=== PATIENT | male | born 1985 | race Caucasian/White ===

== ENCOUNTER 2023-11-06 09:32 | Outpatient (REF) | payer OTHER, SELFPAY | END 2023-11-06 09:33 | disposition home or self-care (01) | LOC: HO.HHCL 09:32 | PROVIDERS: Visit Provider Emergency Medicine | DX: R10.30 Lower abdominal pain, unspecified (principal) | CPT/HCPCS: 36415; 80053; 81003; 82150; 82248; 83690; 85025; 86140; 86704; 86706; 86709; 86803; 87340 ==

== ENCOUNTER 2023-11-07 13:37 | Outpatient (REF) | payer OTHER, SELFPAY | END 2023-11-07 13:38 | disposition home or self-care (01) | LOC: HO.HHCLNP 13:37 | PROVIDERS: Visit Provider Emergency Medicine | DX: R10.30 Lower abdominal pain, unspecified (principal) | CPT/HCPCS: 82274; 87338 ==

== ENCOUNTER 2025-01-22 12:27 | Outpatient (REF) | payer OTHER, SELFPAY ==
[2025-01-22 13:54] LABS: Estimated Average Glucose 120 mg/dL; Hemoglobin A1c % 5.8 % (<6.0)
[2025-01-22 14:01] LABS: Prostate Specific Antigen 0.32 ng/mL (<0.05-4.0)
[2025-01-22 16:47] LABS: Appearance Urine Clear; Color Urine Yellow; Glucose Urine UA Negative (Negative); Leukocyte Esterase Urine Negative (Negative); Nitrite Urine Negative (Negative); PH 6.5 (5.0-9.0); Specific Gravity - Urine 1.025 (1.005-1.025); Urine Blood Negative (Negative); Urine Ketones Negative (Negative); Urine Protein Negative (Neg-Trace)
[2025-01-22 16:54] LABS: Bacteria Urine None Seen (None Seen); Hyaline Casts Urine 0-2 /LPF (0-2); RBC Urine 0-2 /HPF (0-2); Squamous Epithelial Cell Urine 0-2 /HPF (0-2); WBC Urine 0-5 /HPF (0-5)
[2025-01-23 16:45] LABS: CT PCR NOT DETECTED (Not Detect.); NG PCR NOT DETECTED (Not Detect.)
[2025-01-25 04:29] LABS: HBS Num1 1.09 mIU/mL (0-7.99); HBc Num1 0.06 S/CO (0.00-0.79); HBsAGNum1 0.27 S/CO (0.00-0.99); HIV AB/AG Nonreactive (Nonreactive); HIV Num 1 0.06 S/CO (0.00-0.99); Hepatitis A Antibody IgM 0.15 Index (0-0.79); Hepatitis B Core Antibody Nonreactive (Nonreactive); Hepatitis B Surface Antigen Negative (Negative); ~HepC Num1 0.16 S/CO (0.00-0.79); ~Hepatitis A Antibody IgM Nonreactive (Nonreactive); ~Hepatitis B Surface Antibody NONREACTIVE (Nonreactive); ~Hepatitis C Antibody Nonreactive (Nonreactive)
== END 2025-01-22 12:28 | disposition home or self-care (01) ==
LOC: HO.HHCL 12:27
PROVIDERS: Visit Provider Nurse Practitioner Primary Care
DX: Z00.00 Encounter for general adult medical examination without abnormal findings (principal); R35.0 Frequency of micturition; R35.1 Nocturia
CPT/HCPCS: 36415; 81001; 83036; 84153; 86704; 86706; 86709; 86803; 87340; 87389; 87491; 87591

== ENCOUNTER 2025-02-12 13:33 | Outpatient (REF) | payer OTHER, SELFPAY ==
--- NOTE | ~2025-02-12 | US_ITS ---
EXAMINATION: US BLADDER HISTORY: pelvic pain, frequency COMPARISON: There are no prior studies for comparison. FINDINGS: Sonographic examination of the urinary bladder was performed before and after voiding. Before voiding, the urinary bladder measured 11.4 x 7.7 x 8.8, for an estimated volume of404 mL. After voiding, the urinary bladder measured 4.4 x 2.6 x 4.6, for an estimated volume of 28 mL. The urinary bladder wall is mildly thickened measuring up to 6 mm in thickness. No mass is identified. Bilateral ureteral jets are identified. The prostate measures 2.8 x 2.6 x 3.7 cm. US/US bladder IMPRESSION: Urinary bladder wall thickening which can be seen in the setting of cystitis. Post void bladder residual 28 mL. Electronically signed by: Stephan Noriega MD 02/15/2025 07:08 AM EDT
--- OUTSIDE RECORDS SUMMARY | 2025-02-12 13:55 | XMS_ITS | Clinical Summary ---
Author Organization [facility] Address [address] [place] [address] Phone Care Team Providers Care Advanced Practice Rn Name Role Phone Physician, Pcp Unknown Primary Care Provider Yasmin vailable Allergies No known active allergies Medications famotidine (PEPCID) 20 mg tablet Take 1 tablet (20 mg total) by mouth at bedtime for 25 days. 25 tablet 5 02/13/20 25 Active sucralfate (CARAFATE) 100 mg/mL suspension Take 10 mL (1 g total) by mouth 4 (four) times a day (before meals and nightly) for 7 days. 280 mL 5 01/26/20 25 ondansetron (ZOFRAN) 4 mg tablet Take 1 tablet (4 mg total) by mouth every 8 (eight) hours if needed for nausea or vomiting for up to 3 days. 9 tablet 5 01/22/20 25 loperamide (IMODIUM) 2 mg capsule Take 1 capsule (2 mg total) by mouth 4 (four) times a day if needed for diarrhea for up to 3 days. 12 capsule 5 01/22/20 25 Encounters Date Type Department Care Team Description 01/18/2025 7:41 AM EDT - 01/18/2025 10:23 AM EDT [facility] Emergency [address] [place] [address] Dmitri Henriquez MD Lower abdominal pain (Primary Dx); Diarrhea, unspecified type Discharge Disposition: Home or Self Care from Last 3 Months Social History Tobacco Use Types Packs/Day Years Used Date Smoking Tobacco: Never Assessed Sex and Gender Information Value Date Recorded Sex Assigned at Male 01/18/2025 8:08 AM EDT Legal Sex Male 5:44 AM EST Gender Identity Male 01/18/2025 8:08 AM EDT Sexual Orientation Straight 01/18/2025 8: 08 AM EDT Last Filed Vital Signs Vital Sign Reading Time Taken Comments Blood Pressure 142/107 01/18/2025 10:23 AM EDT Pulse 65 01/18/2025 10:23 AM EDT Temperature 37.5 ??C (99.5 ??F) 01/18/2025 10:23 AM E DT Respiratory Rate 20 01/18/2025 10:23 AM EDT Oxygen Saturation 96% 01/18/2025 10:23 AM EDT Inhaled Oxygen Concentration - - Weight 102 kg (225 lb) 01/18/2025 7:30 AM EDT Height 175.3 cm (5' 9 ) 01/18/2025 7:30 AM EDT Body Mass Index 33.23 01/18/2025 7:30 AM EDT Plan of Treatment Health Maintenance Due Date Last Done Comments DTaP,Tdap,and Td Vaccines (1 - Tdap) 2002 Hepatitis B Vaccines (1 of 3 - 19+ 3-dose series) 2002 COVID-19 Vaccine (2023-2 5 season) 2024 03/24/2021, 03/03/2021 Cholesterol Screening (Lipid Panel) 01/18/2025 Depression Screening 01/18/2025 HIV Screening 01/18/2025 Hepatitis C Screening 01/18/2025 Social Influencers of Health Screening 01/18/2025 Influenza Vaccine (Season Ended) 2025 HIB Vaccines Aged Out No longer eligi ble based on patient's age to complete this topic HPV Vaccines Aged Out No longer eligi ble based on patient's age to complete this topic Hepatitis A Vaccines Aged Out No long er eligible based on patient's age to complete this topic IPV Vaccines Aged Out No longer eligi ble based on patient's age to complete this topic MMR Vaccines Aged Out No longer eligi ble based on patient's age to complete this topic Meningococcal ACWY Vaccine Aged Out N o longer eligible based on patient's age to complete this topic Meningococcal B Vaccine Aged Out No l onger eligible based on patient's age to complete this topic Pneumococcal Vaccine: Pediatrics (0 to 5 Years) and At-Risk Patients (6 to 64 Years) Aged Out No longer eligible b ased on patient's age to complete this topic RSV Immunization Patients Under 20 months Aged Out No longer eligible b ased on patient's age to complete this topic Varicella Vaccines Aged Out No longer eligible based on patient's age to complete this topic Procedures Procedure Name Priority Date/Time Associated Diagnosis Comments CT ABDOMEN PELVIS W CONTRAST STAT 01/18/2025 9:02 AM EDT FARMER URINE CULTURE TUBE STAT 01/18/2025 8:02 AM EDT URINALYSIS WITH REFLEX MICROSCOPIC AND CULTURE STAT 01/18/2025 8:02 AM EDT URINALYSIS WITH REFLEX MICROSCOPIC AND CULTURE STAT 01/18/2025 8:02 AM EDT CBC WITH AUTO DIFFERENTIAL STAT 01/18/2025 7:40 AM EDT LIPASE STAT 01/18/2025 7:40 AM EDT COMPREHENSIVE METABOLIC PANEL STAT 01/18/2025 7:40 AM EDT CBC AND DIFFERENTIAL STAT 01/18/2025 7:40 AM EDT from Last 3 Months Results * CT Abdomen Pelvis w Contrast (01/18/2025 9:02 AM EDT) Anatomical Region Laterality Modality Body Computed Tomogra phy 01/18/2025 9:13 AM EDT Impressions 01/18/2025 9:16 AM EDT Impression: No acute abdominal process identified. Telerad RAMONITA ([id number]) -------- FINAL REPORT -------- Dictated By: Valery Vasques Dictated Date: 01/18/2025 09:13 ET Assigned Physician: Valery Vasques Reviewed and Electronically Signed By: Valery Vasques Signed Date: 01/18/2025 09:16 ET Workstation ID: [id number] Transcribed By: Self Edit Transcribed Date: 01/18/2025 09:13 ET Narrative 01/18/2025 9:16 AM EDT History: Abdominal pain. Comparison: 01/26/21 Technique: Helical volumetric imaging of the abdomen and pelvis was performed during the uneventful intravenous administration of 90 cc Isovue-370. DLP: 1277.86 mGy/cm GE Desktop Geneticspeed VCT Iterative reconstruction technique Findings: The liver is normal in size and configuration. Geographic areas of diminished attenuation are present in the right hepatic lobe, suggesting fatty infiltration. No masses are identified. The portal vein is patent. The gallbladder is physiologically distended. No evidence of biliary obstruction is seen. The spleen, pancreas and adrenal glands are unremarkable. The kidneys are normal in position and size, with symmetric, intact nephrograms and no evidence of hydronephrosis or mass. No ascites is seen. There is no developing lymphadenopathy. The abdominal aorta and IVC are unremarkable. The prostate, seminal vesicles and urinary bladder appear normal. No evidence of bowel obstruction is seen. The appendix is normal in caliber in the right lower quadrant. No abnormal perienteric or pericolonic fat stranding is identified. The regional skeleton is intact. Procedure Note Valery Vasques MD - 01/18/2025 History: Abdominal pain. Comparison: 01/26/21 Technique: Helical volumetric imaging of the abdomen and pelvis wasperformed during the uneventful intravenous administration of 90 ccIsovue-370. DLP: 1277.86 mGy/cm GE Desktop Geneticspeed VCT Iterative reconstruction technique Findings: The liver is normal in size and configuration. Geographic areas ofdiminished attenuation are present in the right hepatic lobe, suggestingfatty infiltration. No masses are identified. The portal vein is patent.The gallbladder is physiologically distended. No evidence of biliaryobstruction is seen. The spleen, pancreas and adrenal glands are unremarkable. The kidneys are normal in position and size, with symmetric, intactnephrograms and no evidence of hydronephrosis or mass. No ascites is seen. There is no developing lymphadenopathy. The abdominalaorta and IVC are unremarkable. The prostate, seminal vesicles and urinary bladder appear normal. No evidence of bowel obstruction is seen. The appendix is normal incaliber in the right lower quadrant. No abnormal perienteric orpericolonic fat stranding is identified. The regional skeleton is intact. IMPRESSION: Impression: No acute abdominal process identified. Telerad RAMONITA ([id number]) -------- FINAL REPORT -------- Dictated By: Valery aVsques Dictated Date: 01/18/2025 09:13 ET Assigned Physician: Valery Vasques Reviewed and Electronically Signed By: Valery Vasques Signed Date: 01/18/2025 09:16 ET Workstation ID: [id number] Transcribed By: Self Edit Transcribed Date: 01/18/2025 09:13 ET us Dmitri Henriquez MD IMG CT PROCEDURES Final R esult * (ABNORMAL) Urinalysis with reflex microscopic and culture (01/18/2025 8:02 AM EDT) Specific [place] Urine 1.025 1.003 - 1.030 LAB URINALYSIS - AUTOMATED METHOD 01/18/2025 8:26 AM [facility] pH, Urine 6.0 5.0 - 8.0 pH LAB URINALYSIS - AUTOMATED METHOD 01/18/2025 8:26 AM [facility] Leukocytes, Urine Negative Negative LAB URINALYSIS - AUTOMATED METHOD 01/18/2025 8:26 AM [facility] Nitrite, Urine Negative Negative LAB URINALYSIS - AUTOMATED METHOD 01/18/2025 8:26 AM [facility] Protein, Urine Negative <=Trace mg/dL LAB URINALYSIS - AUTOMATED METHOD 01/18/2025 8:26 AM [facility] Glucose, Urine Negative Negative mg/dL LAB URINALYSIS - AUTOMATED METHOD 01/18/2025 8:26 AM [facility] Ketones, Urine Trace(A) Negative mg/dL LAB URINALYSIS - AUTOMATED METHOD 01/18/2025 8:26 AM [facility] Urobilinogen, Urine 1.0 0.2 - 1.0 mg/dL LAB URINALYSIS - AUTOMATED METHOD 01/18/2025 8:26 AM EDT [facility] Bilirubin, Urine Negative Negative LAB URINALYSIS - AUTOMATED METHOD 01/18/2025 8:26 AM EDT [facility] Blood, Urine Negative Negative LAB URINALYSIS - AUTOMATED METHOD 01/18/2025 8:26 AM EDT [facility] Urine Urine specimen obtained by clean catch procedure / Unknown Non-blood Collection / Unknown 01/18/2025 8:02 AM EDT 01/18/2025 8:18 AM EDT Dmitri Henriquez MD LAB URINE ORDERABLES Zuly l Result Performing Organization Address City/[facility]/ZIP Co de Phone Number [facility] [address] [place] [address], [place] [phone] * Farmer urine culture tube (01/18/2025 8:02 AM EDT) Extra Tube Hold for add-ons. 01/18/2025 10:02 AM EDT [facility] Comment:Auto resulted. Urine Urine specimen obtained by clean catch procedure / Unknown Non-blood Collection / Unknown 01/18/2025 8:02 AM EDT 01/18/2025 8:17 AM EDT Dmitri Henriquez MD LAB URINE ORDERABLES Zuly l Result [facility] [address] [place] [address], [place] [phone] * CBC auto differential (01/18/2025 7:40 AM EDT) WBC 8.1 4.8 - 10.8 K/[facility] LAB HEMETOLOGY METHOD 01/18/2025 7:59 AM EDT [facility] RBC 5.10 4.50 - 5.50 M/mcL LAB HEMETOLOGY METHOD 01/18/2025 7:59 AM EDT [facility] Hemoglobin 16.1 13.5 - 17.5 g/dL LAB HEMETOLOGY METHOD 01/18/2025 7:59 AM [facility] Hematocrit 47.5 42.0 - 54.0 % LAB HEMETOLOGY METHOD 01/18/2025 7:59 AM [facility] MCV 93.3 79.0 - 98.0 FL LAB HEMETOLOGY METHOD 01/18/2025 7:59 AM [facility] MCH 31.6 27.0 - 32.0 pcg LAB HEMETOLOGY METHOD 01/18/2025 7:59 AM [facility] MCHC 33.9 32.0 - 37.0 g/dL LAB HEMETOLOGY METHOD 01/18/2025 7:59 AM [facility] RDW 11.9 11.0 - 15.0 % LAB HEMETOLOGY METHOD 01/18/2025 7:59 AM [facility] Platelets 363 130 - 400 K/mcL LAB HEMETOLOGY METHOD 01/18/2025 7:59 AM [facility] MPV 9.6 7.0 - 11.0 FL LAB HEMETOLOGY METHOD 01/18/2025 7:59 AM [facility] NRBC 0.0 <1.0 % LAB HEMETOLOGY METHOD 01/18/2025 7:59 AM [facility] NRBC Absolute 0.00 <0.10 K/mcL LAB HEMETOLOGY METHOD 01/18/2025 7:59 AM [facility] Neutrophils Relative 41.6 % LAB HEMETOLOGY METHOD 01/18/2025 7:59 AM [facility] Lymphocytes Relative 46.5 % LAB HEMETOLOGY METHOD 01/18/2025 7:59 AM [facility] Monocytes Relative 8.2 % LAB HEMETOLOGY METHOD 01/18/2025 7:59 AM [facility] Eosinophils Relative 2.9 % LAB HEMETOLOGY METHOD 01/18/2025 7:59 AM [facility] Basophils Relative 0.6 % LAB HEMETOLOGY METHOD 01/18/2025 7:59 AM [facility] Immature Granulocytes Relative 0.2 % LAB HEMETOLOGY METHOD 01/18/2025 7:59 AM [facility] Neutrophils Absolute 3.35 1.50 - 7.00 K/mcL LAB HEMETOLOGY METHOD 01/18/2025 7:59 AM [facility] Lymphocytes Absolute 3.74 1.00 - 5.00 K/mcL LAB HEMETOLOGY METHOD 01/18/2025 7:59 AM [facility] Monocytes Absolute 0.66 0.20 - 1.00 K/mcL LAB HEMETOLOGY METHOD 01/18/2025 7:59 AM [facility] Eosinophils Absolute 0.23 0.00 - 0.50 K/mcL LAB HEMETOLOGY METHOD 01/18/2025 7:59 AM [facility] Basophils Absolute 0.05 0.00 - 0.20 K/mcL LAB HEMETOLOGY METHOD 01/18/2025 7:59 AM [facility] Immature Granulocytes Absolute 0.02 0.00 - 0.03 K/mcL LAB HEMETOLOGY METHOD 01/18/2025 7:59 AM [facility] Blood Venous blood specimen / Unknown Venipuncture / Unknown 01/18/2025 7:40 AM EDT 01/18/2025 7:50 AM EDT us Dmitri Henriquez MD LAB BLOOD ORDERABLES Zuly l Result Performing Organization Address City/[facility]/ZIP Co de Phone Number [facility] [address] [place] [address], * Lipase (01/18/2025 7:40 AM EDT) Lipase 49 13 - 75 unit/L LAB CHEMISTRY METHOD 01/18/2025 8:49 AM EDT [facility] Blood Venous blood specimen / Unknown Venipuncture / Unknown 01/18/2025 7:40 AM EDT 01/18/2025 7:50 AM EDT Dmitri Henriquez MD LAB BLOOD ORDERABLES Zuly l Result Performing Organization Address [facility]/ZIP Co de Phone Number [facility] [address] [place] [address], * (ABNORMAL) Comprehensive metabolic panel (01/18/2025 7:40 AM EDT) Pathologist [facility] Sodium 138 133 - 145 mmol/L LAB CHEMISTRY METHOD 01/18/2025 8:29 AM [facility] Potassium 4.2 3.5 - 5.5 mmol/L LAB CHEMISTRY METHOD 01/18/2025 8:29 AM [facility] Chloride 105 96 - 110 mmol/L LAB CHEMISTRY METHOD 01/18/2025 8:29 AM [facility] CO2 27 21 - 32 mmol/L LAB CHEMISTRY METHOD 01/18/2025 8:29 AM [facility] Anion Gap 6 3 - 11 LAB CHEMISTRY METHOD 01/18/2025 8:29 AM [facility] Glucose 112(H) 70 - 100 mg/dL LAB CHEMISTRY METHOD 01/18/2025 8:29 AM [facility] BUN 14 5 - 25 mg/dL LAB CHEMISTRY METHOD 01/18/2025 8:29 AM [facility] Creatinine 1.08 0.70 - 1.30 mg/dL LAB CHEMISTRY METHOD 01/18/2025 8:29 AM [facility] eGFR 88 >=60 mL/min/1. 73m2 LAB CHEMISTRY METHOD 01/18/2025 8:29 AM [facility] Comment:Calculation based on the??Chronic Kidney Disease Epidemiology Collaboration (CKD-EPI) equation refit??without adjustment for race. BUN/Creatinine Ratio 13.0 LAB CHEMISTRY METHOD 01/18/2025 8:29 AM [facility] Calcium 9.2 8.5 - 10.5 mg/dL LAB CHEMISTRY METHOD 01/18/2025 8:29 AM [facility] AST (SGOT) 28 10 - 42 unit/L LAB CHEMISTRY METHOD 01/18/2025 8:29 AM [facility] ALT (SGPT) 57 10 - 60 unit/L LAB CHEMISTRY METHOD 01/18/2025 8:29 AM [facility] Alkaline Phosphatase 59 42 - 121 unit/L LAB CHEMISTRY METHOD 01/18/2025 8:29 AM [facility] Total Protein 7.2 6.0 - 8.0 g/dL LAB CHEMISTRY METHOD 01/18/2025 8:29 AM [facility] Albumin 3.7 3.2 - 5.0 g/dL LAB CHEMISTRY METHOD 01/18/2025 8:29 AM [facility] Total Bilirubin 0.6 0.0 - 1.4 mg/dL LAB CHEMISTRY METHOD 01/18/2025 8:29 AM [facility] Blood Venous blood specimen / Unknown Venipuncture / Unknown 01/18/2025 7:40 AM EDT 01/18/2025 7:50 AM EDT us Dmitri Henriquez MD LAB BLOOD ORDERABLES Zuly l Result [facility] [address] [place] [address], [place] [phone] from Last 3 Months Insurance MEDICAID - [place] Care Teams Advanced Practice Rn Relationship Specialty Start Date End Date Physician, Pcp Unknown PCP - General 01/18/25
--- OUTSIDE RECORDS SUMMARY | 2025-02-12 13:55 | XMS_ITS | Clinical Summary ---
Author Organization [employer] Address [address] [facility] [address] [place] [address] Care Team Providers Care Specimen Transporter Name Role Phone Stefan Reece MD Primary Care Provide r Allergies No known active allergies Medications famotidine (Pepcid) 40 MG tablet Take 1 tablet (40 mg) by mouth in the evening. 30 tablet 11 4 Active Blood Pressure kitIndications:El evated blood pressure reading without diagnosis of hypertension 1 each 2 times daily. 1 kit 5 01/23/20 26 Active tamsulosin (Flomax) 0.4 MG 24 hr capsuleIndication s:Nocturia Take 1 capsule (0.4 mg) by mouth Once per day. 90 capsule 5 Active omeprazole (PriLOSEC) [address] capsuleIndication s:Epigastric pain Take 1 capsule (20 mg) by mouth before breakfast. Do not crush or chew. 90 capsule 5 Active Active Problems Problem Noted Date Diagnosed Date Nocturia 01/22/2025 Epigastric pain 01/22/2025 Former smoker 01/22/2025 Overview (01/22/2025): quit approx 2014 Encounters Date Type Department Care Team Description 01/22/2025 11:30 AM EDT Office Visit [facility] [address] [place] [phone] Wendy Tijerina ANP Urinary frequency (Primary Dx); Nocturia; Pelvic pain; Elevated blood pressure reading without diagnosis of hypertension; Epigastric pain; Healthcare maintenance; Encounter for immunization; Former smoker 01/22/2025 Travel 01/20/2025 Telephone [facility] [address] [place] [phone] Stefan Reece MD ER Follow-up from Last 3 Months Immunizations Name Administration Dates Next Due Pfizer Covid-19 Vaccine 12+ 03/24/2021, Tdap 01/22/2025 Social History Tobacco Use Types Packs/Day Years Used Date Smoking Tobacco: Never Smokeless Tobacco: Never Tobacco Cessation:Counseling Given: Not Answered Sex and Gender Information Value Date Recorded Sex Assigned at Male 09/03/2022 10:37 AM EDT Legal Sex Male 10:37 AM EDT Gender Identity Male 09/03/2022 10:37 AM EDT Sexual Orientation Straight 09/03/2022 10 :37 AM EDT Last Filed Vital Signs Vital Sign Reading Time Taken Comments Blood Pressure 140/92 01/22/2025 12:10 PM EDT Pulse 80 01/22/2025 11:30 AM EDT Temperature 36.7 ??C (98 ??F) 01/22/2025 11:30 AM EDT Respiratory Rate 14 01/22/2025 11:30 AM EDT Oxygen Saturation 96% 01/22/2025 11:30 AM EDT Inhaled Oxygen Concentration - - Weight 104 kg (229 lb) 01/22/2025 11:30 AM EDT Height 175.3 cm (5' 9 ) 01/22/2025 11:30 AM EDT Body Mass Index 33.82 01/22/2025 11:30 AM EDT Plan of Treatment Upcoming Encounters Date Type Department Care Team (Late st Contact Info) Description 04/01/2025 2:30 PM EDT Office Visit [facility] [address] [place] [phone] Stefan Reece MD [address] [place] [phone] Health Maintenance Due Date Last Done Comments Depression Screening 1983 Lipid Panel 1983 SDOH Screening 1983 Alcohol/Substance Use Screening 1995 Family Planning (PISQ) 1998 Hepatitis B Vaccines (1 of 3 - 19+ 3-dose series) 2002 COVID-19 Vaccine (3 - 2023-2 5 season) 2024 03/24/2021, 03/03/2021 Influenza Vaccine (#1) 2024 Diabetes: Hemoglobin A1C 01/22/2026 01/22/2025 Tobacco Screening 01/22/2026 01/22/2025 Zoster Vaccines (1 of 2) 2033 DTaP/Tdap/Td Vaccines (2 - T d or Tdap) 01/22/2035 01/22/2025 RSV Patients and Patients Aged 60 years or older (1 - 1-dose 75+ series) 2058 HIV Screening Completed 01/22/2025 Hepatitis C Screening Completed 01/22/2025 , 11/06/2023 HIB Vaccines Aged Out No longer eligi [...] patient's age to complete this topic Meningococcal Vaccine Aged Out No cora belgica eligible based on patient's age to complete this topic Pneumococcal Vaccine: Pediatrics (0 to 5 Years) and At-Risk Patients (6 to 49) Years) Aged Out No longer eligible b ased on patient's age to complete this topic RSV under 20 months Aged Out No longe r eligible based on patient's age to complete this topic Rotavirus Vaccines Aged Out No longer eligible based on patient's age to complete this topic Procedures Procedure Name Priority Date/Time Associated Diagnosis Comments HEMOGLOBIN A1C Routine 01/22/2025 12:30 PM EDT Urinary frequency HEPATITIS PANEL, GENERAL Routine 01/22/2025 12:30 PM EDT Healthcare maintenance HIV 1/2 ANTIGEN/ANTIBODY, FOURTH GENERATION W/RFL Routine 01/22/2025 12:30 PM EDT Healthcare maintenance PSA, TOTAL Routine 01/22/2025 12:30 PM EDT Nocturia URINALYSIS, COMPLETE, WITH REFLEX TO CULTURE Routine 01/22/2025 12:19 PM EDT Urinary frequency CHLAMYDIA/N. GONORRHOEAE RNA, TMA, UROGENITAL Routine 01/22/2025 12:19 PM EDT Urinary frequency from Last 3 Months Results * Hepatitis A,B,C Profile (01/22/2025 12:30 PM EDT) Hepatitis A IgM Nonreactive Nonreactive [facility] Comment:IgM antibodies to GALLAGHER V not detected; does not exclude earlyacute or recovered HAV infection. ~Hepatitis B Surface Antibody NONREACTIVE Nonreactive [facility] Comment:Nonreactive: < 8.00 mIU/mL Hepatitis B Core Antibody Nonreactive Nonreactive [facility] Hepatitis C Antibody Nonreactive Nonreactive [facility] Comment:Antibodies to HCV no t detected; does not exclude early acuteHCV infection. Hepatitis B Surface Ag Negative Negative [facility] Blood Venous blood specimen / Unknown 01/22/2025 12:30 PM EDT 01/22/2025 1:13 PM EDT [facility] BLOOD ORDERABLES Final Resul t [facility] [address] [place] [phone] * HIV-1/2 Antigen and Antibodies, Fourth Generation, with Reflexes (01/22/2025 12:30 PM EDT) HIV AB/AG Nonreactive Nonreactive [facility] Comment:HIV-1 p24 Ag and/or HIV-1/HIV-2 Ab not detected.A test result that is nonreactive does not exclude thepossibility of exposure to or infection with HIV-1 and/orHIV-2. Nonreactive results in this assay for individualswith prior exposure to HIV-1 and/or HIV-2 may be due toantigen and antibody levels that are below the limit ofdetection of this assay.The Head Held High HIV Ag/Ab Combo assay result andsupplemental assay results should be interpreted inconjunction with the patient's clinical presentation,history and other laboratory results. If the results areinconsistent with clinical evidence, additional testing issuggested to confirm the result. Blood Venous blood specimen / Unknown 01/22/2025 12:30 PM EDT 01/22/2025 1:13 PM EDT Wendy Tijerina [facility] BLOOD ORDERABLES Final Resul t Performing Organization Address [facility] Co de Phone Number [facility] [address] [place] [phone] * PSA,Total (01/22/2025 12:30 PM EDT) Prostate Specific Antigen 0.32 <0.05 - 4.0 ng/mL [facility] Comment:PSA methodology: Doreen Burgos i ChemiluminescentMicroparticle Immunoassay (CMIA) Blood Venous blood specimen / Unknown 01/22/2025 12:30 PM EDT 01/22/2025 1:13 PM EDT [facility] BLOOD ORDERABLES Final Resul t Performing Organization Address [facility] de Phone Number [facility] [address] [place] [phone] * Hemoglobin A1c (01/22/2025 12:30 PM EDT) Hemoglobin A1c 5.8 <6.0 % [facility] Comment:Hemoglobin A1C Refer ence Range Adults: 4.8 - 6.0 % Non diabetic: < 6.0 % Goal: < 7.0 %Additional Action Suggested: > 8.0 %Note: Hemoglobin A1c results are invalid for patients with abnormal amounts of HbF. Blood transfusions may impact the HbA1c concentration in the patient sample. Estimated Average Glucose 120 mg/dL [facility] Comment:eAG = Estimated ave rage glucose which is %A1C expressed asaverage glucose, using the formula of the N6M-XrgcyuxIyyffin Glucose study (ADAG), Diabetes Care, Vol.31,#8,Jun. 2007 Blood Venous blood specimen / Unknown 01/22/2025 12:30 PM EDT 01/22/2025 1:13 PM EDT Wendy Tijerina [facility] BLOOD ORDERABLES Final Resul t Performing Organization Address [facility] de Phone Number [facility] [address] [place] [phone] * Urinalysis, Complete, with Reflex to Culture (01/22/2025 12:19 PM EDT) Color Urine Yellow [facility] Appearance Urine Clear [facility] PH 6.5 5.0 - 9.0 [facility] Glucose Urine UA Negative Negative mg/dL [facility] Urine Blood Negative Negative [facility] Specific [place] - Urine 1.025 1.005 - 1.025 [facility] Urine Protein Negative Neg-Trace mg/dL [facility] Urine Ketones Negative Negative mg/dL [facility] Nitrite Urine Negative Negative [facility] Leukocyte Esterase Urine Negative Negative [facility] RBC Urine 0-2 0 - 2 /HPF [facility] Urine WBC 0-5 0 - 5 /HPF [facility] Urine Squamous Epithelial Cell 0-2 0 - 2 /HPF [facility] Urine Bacteria None Seen None Seen [facility] Hyaline Casts, Urine 0-2 0 - 2 /LPF [facility] Urine 01/22/2025 12:1 9 PM EDT 01/22/2025 4:31 PM EDT Narrative [facility] - 01/22/2025 4:55 PM EDT Urine, Clean Catch Wendy Tijerina ANP LAB URINE ORDERABLES Final Resul t Performing Organization Address [facility] Co de Phone Number [facility] [address] [place] [phone] * Chlamydia/N. Gonorrhoeae RNA, TMA, Urogenitial (01/22/2025 12:19 PM EDT) CT PCR NOT DETECTED Not Detect. [facility] Comment:A not detected test result does not exclude the possibilityof infection because test results can be affected byimproper specimen collection, concurrent antibiotic therapy,or the number of organisms in the specimen which may bebelow the sensitivity of the test. As with many diagnostictests, results from the Xpert CT/NG assay should beinterpreted in conjunction with other laboratory andclinical data available to the clinician.Xpert CT/NG performance has not been evaluated in patientsless than 14 years of age. The assay should not be used forthe evaluationof suspected sexual abuse or for other medico-legalindications. Additional testing is recommended in anycircumstance when false positive or false negative resultscould lead to adverse medical, social or psychologicalconsequences. NG PCR NOT DETECTED Not Detect. [facility] Comment:A not detected test result does not exclude the possibilityof infection because test results can be affected byimproper specimen collection, concurrent antibiotic therapy,or the number of organisms in the specimen which may bebelow the sensitivity of the test. As with many diagnostictests, results from the Xpert CT/NG assay should beinterpreted in conjunction with other laboratory andclinical data available to the clinician.Xpert CT/NG performance has not been evaluated in patientsless than 14 years of age. The assay should not be used forthe evaluationof suspected sexual abuse or for other medico-legalindications. Additional testing is recommended in anycircumstance when false positive or false negative resultscould lead to adverse medical, social or psychologicalconsequences. Urine 01/22/2025 12:1 9 PM EDT 01/22/2025 4:31 PM EDT Narrative [facility] - 01/23/2025 4:46 PM EDT Urine [facility] MICROBIOLOGY - GENERAL ORDER SASKIA Final Result [facility] [address] [place] [phone] from Last 3 Months Insurance [employer] [facility] Care Teams Specimen Transporter Relationship Specialty Start Date End Date Stefan Reece MD [address] [place] [phone] PCP - General Internal Medicine 02/09/21
== END 2025-02-12 13:34 | disposition home or self-care (01) ==
LOC: HO.US 13:33
PROVIDERS: PCP Internal Medicine; Visit Provider Nurse Practitioner Primary Care
DX: R35.0 Frequency of micturition (principal); R10.2 Pelvic and perineal pain
CPT/HCPCS: 76857

== ENCOUNTER → 2025-02-12 13:35 | Outpatient (BNV) | payer OTHER, SELFPAY | PROVIDERS: PCP Internal Medicine; Visit Provider Radiology Diagnostic Radiology | DX: N32.89 Other specified disorders of bladder (principal); R39.14 Feeling of incomplete bladder emptying | CPT/HCPCS: 76857 ==

== ENCOUNTER 2025-03-23 07:49 | Outpatient (AMB) | payer OTHER, SELFPAY ==
--- OUTSIDE RECORDS SUMMARY | 2025-03-23 07:52 | XMS_ITS | Clinical Summary ---
Author Organization [facility] Address [address] [place] [address] Phone Care Team Providers Care Fur Comber Name Role Phone Physician, Pcp Unknown Primary Care Provider Yasmin vailable Allergies No known active allergies Encounters Date Type Department Care Team Description 01/18/2025 7:41 AM EDT - 01/18/2025 10:23 AM EDT Emergency [facility] Emergency [address] [place] [address] Dmitri Henriquez MD Lower abdominal [...] - 2023-2 5 season) 2024 03/24/2021, 03/03/2021 Cholesterol Screening [...] No acute abdominal process identified. Telerad RAMONITA ([id number]) -------- FINAL REPORT -------- Dictated By: Valery Vasques Dictated Date: 01/18/2025 09:13 ET Assigned Physician: Valery Vasques Reviewed and Electronically Signed By: Valery Vasques Signed Date: 01/18/2025 09:16 ET Workstation ID: [id number] Transcribed By: Self Edit Transcribed Date: 01/18/2025 09:13 ET Narrative 01/18/2025 9:16 AM EDT History: Abdominal pain. Comparison: 01/26/21 Technique: Helical volumetric imaging of the abdomen and pelvis was performed during the uneventful intravenous administration of 90 cc Isovue-370. DLP: 1277.86 mGy/cm [email or web address] VCT Iterative reconstruction technique Findings: The liver [...] administration of 90 ccIsovue-370. DLP: 1277.86 mGy/cm SiteWit VCT Iterative reconstruction technique Findings: The liver [...] Impression: No acute abdominal process identified. Telerad MD ([id number]) -------- FINAL REPORT -------- Dictated By: Valery Vasques Dictated Date: 01/18/2025 09:13 ET Assigned Physician: Valery Vasques Reviewed and Electronically Signed By: Valery Vasques Signed Date: 01/18/2025 09:16 ET Workstation ID: [id number] Transcribed By: Self Edit Transcribed Date: 01/18/2025 09:13 ET Dmitri Henriquez MD IMG CT PROCEDURES Final R esult * (ABNORMAL) Urinalysis with reflex microscopic and culture (01/18/2025 8:02 AM EDT) Specific [place] Urine 1.025 1.003 - 1.030 LAB URINALYSIS - AUTOMATED METHOD 01/18/2025 8:26 AM [facility] pH, Urine 6.0 5.0 - 8.0 pH LAB URINALYSIS - AUTOMATED METHOD 01/18/2025 8:26 AM [facility] Leukocytes, Urine Negative Negative LAB URINALYSIS - AUTOMATED METHOD 01/18/2025 8:26 AM [facility] Nitrite, Urine Negative Negative LAB URINALYSIS - AUTOMATED METHOD 01/18/2025 8:26 AM [facility] Protein, Urine Negative <=Trace mg/dL LAB URINALYSIS - AUTOMATED METHOD 01/18/2025 8:26 AM [facility] Glucose, Urine Negative Negative mg/dL LAB URINALYSIS - AUTOMATED METHOD 01/18/2025 8:26 AM [facility] Ketones, Urine Trace(A) Negative mg/dL LAB URINALYSIS - AUTOMATED METHOD 01/18/2025 8:26 AM [facility] Urobilinogen, Urine 1.0 0.2 - 1.0 mg/dL LAB URINALYSIS - AUTOMATED METHOD 01/18/2025 8:26 AM [facility] Bilirubin, Urine Negative Negative LAB URINALYSIS - AUTOMATED METHOD 01/18/2025 8:26 AM [facility] Blood, Urine Negative Negative LAB URINALYSIS - AUTOMATED METHOD 01/18/2025 8:26 AM [facility] Urine Urine specimen obtained by clean catch procedure / Unknown Non-blood Collection / Unknown 01/18/2025 8:02 AM EDT 01/18/2025 8:18 AM EDT us Dmitri Henriquez MD LAB URINE ORDERABLES Zuly l Result [facility] [address] [place] [address], [place] [phone] * Farmer urine culture tube (01/18/2025 8:02 AM EDT) [facility] Extra Tube Hold for add-ons. 01/18/2025 10:[address] [facility] Comment:Auto resulted. Urine Urine specimen obtained by clean catch procedure / Unknown Non-blood Collection / Unknown 01/18/2025 8:02 AM EDT 01/18/2025 8:17 AM EDT us Dmitri Henriquez MD LAB URINE ORDERABLES Zuly leonard Result [facility] [address] [place] [address], [place] [phone] * CBC auto differential (01/18/2025 7:40 AM EDT) [facility] WBC 8.1 4.8 - 10.8 K/mcL LAB HEMETOLOGY METHOD 01/18/2025 7:[address] [facility] RBC 5.10 4.50 - 5.50 M/mcL LAB HEMETOLOGY METHOD 01/18/2025 7:[address] [facility] Hemoglobin 16.1 13.5 - 17.5 g/dL LAB HEMETOLOGY METHOD 01/18/2025 7:[address] [facility] Hematocrit 47.5 42.0 - 54.0 % LAB HEMETOLOGY METHOD 01/18/2025 7:[address] [facility] MCV 93.3 79.0 - 98.0 FL LAB H[facility]ETOLOGY [facility] MCH 31.6 27.0 - 32.0 pcg LAB HEMETOLOGY METHOD [facility]2025 7[facility] MCHC 33.9 32.0 - 37.0 g/dL LAB HEMETOLOGY METHOD 01/18/2025 7:59 AM [facility] RDW 11.9 11.0 - 15.0 % LAB HEMETOLOGY METHOD 01/18/2025 7:59 AM [facility] Platelets 363 130 - 400 K/mcL LAB HEMETOLOGY METHOD 01/18/2025 7:59 AM [facility] MPV 9.6 7.0 - 11.0 FL LAB HEMETOLOGY METHOD 01/18/2025 7:59 AM [facility] NRBC 0.0 <1.0 % LAB HEMETOLOGY METHOD 01/18/2025 7:59 AM [facility] NRBC Absolute 0.00 <0.10 K/mcL LAB HEMETOLOGY METHOD 01/18/2025 7:59 AM [facility] Neutrophils Relative 41.6 % LAB HEMETOLOGY METHOD 01/18/2025 7:59 AM [facility] Lymphocytes Relative 46.5 % LAB HEMETOLOGY METHOD 01/18/2025 7:59 AM [facility] Monocytes Relative 8.2 % LAB HEMETOLOGY METHOD 01/18/2025 7:59 AM [facility] Eosinophils Relative 2.9 % LAB HEMETOLOGY METHOD 01/18/2025 7:59 AM [facility] Basophils Relative 0.6 % LAB HEMETOLOGY METHOD 01/18/2025 7:59 AM [facility] Immature Granulocytes Relative 0.2 % LAB HEMETOLOGY METHOD 01/18/2025 7:59 AM [facility] Neutrophils Absolute 3.35 1.50 - 7.00 K/mcL LAB HEMETOLOGY METHOD 01/18/2025 7:59 AM [facility] Lymphocytes Absolute 3.74 1.00 - 5.00 K/mcL LAB HEMETOLOGY METHOD 01/18/2025 7:[address] [facility] Monocytes Absolute 0.66 0.20 - 1.00 K/mcL LAB HEMETOLOGY METHOD 01/18/2025 7:[address] [facility] Eosinophils Absolute 0.23 0.00 - 0.50 K/[facility] LAB HEMETOLOGY METHOD 01/18/2025 7:[address] [facility] Basophils Absolute 0.05 0.00 - 0.20 K/[facility] LAB HEMETOLOGY METHOD 01/18/2025 7:[address] [facility] Immature Granulocytes Absolute 0.02 0.00 - 0.03 K/[facility] LAB HEMETOLOGY METHOD 01/18/2025 7:[address] [facility] Blood Venous blood specimen / Unknown Venipuncture / Unknown 01/18/2025 7:40 AM EDT 01/18/2025 7:50 AM EDT Dmitri Henriquez MD LAB BLOOD ORDERABLES Zuly l Result [facility] [address] [place] [address], [place] [phone] * Lipase (01/18/2025 7:40 AM EDT) Lipase 49 13 - 75 unit/L LAB CHEMISTRY METHOD 01/18/2025 8:[address] [facility] Blood Venous blood specimen / Unknown Venipuncture / Unknown 01/18/2025 7:40 AM EDT 01/18/2025 7:50 AM EDT Dmitri Henriquez MD LAB BLOOD ORDERABLES Zuly l Result [facility] [address] [place], [place] [address] [phone] * (ABNORMAL) Comprehensive metabolic panel (01/18/2025 7:40 AM EDT) Sodium 138 133 - 145 mmol/L LAB CHEMISTRY METHOD 01/18/2025 8:29 AM [facility] Potassium 4.2 3.5 - 5.5 mmol/L LAB CHEMISTRY METHOD 01/18/2025 8:29 AM [facility] Chloride 105 96 - 110 mmol/L LAB CHEMISTRY METHOD 01/18/2025 8:29 AM [facility] CO2 27 21 - 32 mmol/L LAB CHEMISTRY METHOD 01/18/2025 8:29 AM [facility] Anion Gap 6 3 - 11 LAB CHEMISTRY METHOD 01/18/2025 8:29 AM [facility] Glucose 112(H) 70 - 100 mg/dL LAB CHEMISTRY METHOD 01/18/2025 8:29 AM [facility] BUN 14 5 - 25 mg/dL LAB CHEMISTRY METHOD 01/18/2025 8:29 AM [facility] Creatinine 1.08 0.70 - 1.30 mg/dL LAB CHEMISTRY METHOD 01/18/2025 8:29 AM [facility] eGFR 88 >=60 mL/min/1. 73m2 LAB CHEMISTRY METHOD 01/18/2025 8:29 AM [facility] Comment:Calculation based on the??Chronic Kidney Disease Epidemiology Collaboration (CKD-EPI) equation refit??without adjustment for race. BUN/Creatinine Ratio 13.0 LAB CHEMISTRY METHOD 01/18/2025 8:29 AM [facility] Calcium 9.2 8.5 - 10.5 mg/dL LAB CHEMISTRY METHOD 01/18/2025 8:29 AM [facility] AST (SGOT) 28 10 - 42 unit/L LAB CHEMISTRY METHOD 01/18/2025 8:29 AM [facility] ALT (SGPT) 57 10 - 60 unit/L LAB CHEMISTRY METHOD 01/18/2025 8:[address] [facility] Alkaline Phosphatase 59 42 - 121 unit/L LAB CHEMISTRY METHOD 01/18/2025 8:[address] [facility] Total Protein 7.2 6.0 - 8.0 g/dL LAB CHEMISTRY METHOD 01/18/2025 8:[address] [facility] Albumin 3.7 3.2 - 5.0 g/dL LAB CHEMISTRY METHOD 01/18/2025 8:[address] [facility] Total Bilirubin 0.6 0.0 - 1.4 mg/dL LAB CHEMISTRY METHOD 01/18/2025 8:[address] [facility] Blood Venous blood specimen / Unknown Venipuncture / Unknown 01/18/2025 7:40 AM EDT 01/18/2025 7:50 AM EDT us Dmitri Henriquez MD LAB BLOOD ORDERABLES Zuly l Result [facility] [address] [place] [address], from Last 3 Months Insurance MEDICAID - [place] Care Teams Fur Comber Relationship Specialty Start Date End Date Physician, Pcp Unknown PCP - General 01/18/25
--- OUTSIDE RECORDS SUMMARY | 2025-03-23 07:52 | XMS_ITS | Clinical Summary ---
Author Organization [employer] Address [address] [facility] [address] [place] [address] Care Team Providers Care Supervisor [employer] Name Role Phone Stefan Reece MD Primary [...] Encounters Date Type Department Care Team Description 02/15/2025 Telephone [facility] MED[facility]INE [address] [place] [phone] Lauren Bullock ANP Results 01/22/2025 11:30 AM EDT Office Visit [facility]INE [address] [place] [address] Lauren Bullock ANP Urinary frequency (Primary Dx); Nocturia; Pelvic pain; Elevated blood pressure reading without diagnosis of hypertension; Epigastric pain; Healthcare maintenance; Encounter for immunization; Former smoker 01/22/2025 Travel 01/20/2025 Telephone [facility] MEDICINE [address] [place] [address] Stefan Reece MD ER Follow-up from Last 3 Months Immunizations Immunization Administration Dates Next Due Pfizer Covid-19 Vaccine [...] Description 04/01/2025 2:30 PM EDT Office Visit [facility] MED[facility] [address] [facility] [place] [phone] Stefan Reece MD [address] [facility] [place] [address] Health Maintenance Due Date Last Done Comments Depression Screening 1983 Lipid Panel 1983 SDOH Screening 1983 Disability Screening 1983 Alcohol/Substance Use Screening 1995 Family [...] Procedure Name Priority Date/Time Associated Diagnosis Comments US BLADDER Routine 02/12/2025 3:39 PM EDT HEMOGLOBIN A1C Routine 01/22/2025 12:30 PM EDT Urinary frequency HEPATITIS PANEL, GENERAL Routine 01/22/2025 12:30 PM EDT Healthcare maintenance HIV 2 ANTIGEN/ANTIBODY, FOURTH GENERATION W/RFL Routine 01/22/2025 12:30 PM EDT Healthcare maintenance PSA, TOTAL Routine 01/22/2025 12:30 PM EDT Nocturia URINALYSIS, COMPLETE, WITH REFLEX TO CULTURE Routine 01/22/2025 12:19 PM EDT Urinary frequency CHLAMYDIA/N. GONORRHOEAE RNA, TMA, UROGENITAL Routine 01/22/2025 12:19 PM EDT Urinary frequency from Last 3 Months Results * US BLADDER (02/12/2025 3:39 PM EDT) Anatomical Region Laterality Modality Abdomen Ultrasound 02/12/2025 3:39 PM EDT Narrative 02/15/2025 7:11 AM EDT ? [facility] ?[address] ?[place] [address] ? Ultrasound Report ? Signed ? Patient: Ricardo Isaacs ?MR#: [id number] ?? 6 ? : 1985 ?Acct:[id number] ? Age/Sex: 39 / M ?ADM Date: 02/12/25 ? Loc: HO.US ? Attending Dr: Lauren Bullock NP ? Ordering Physician: LAUREN BULLOCK NP ?? Date of Service: 02/12/25 ?? Procedure(s): US bladder ?? Accession Number(s): [id number] ? cc: Stefan Bahena MD; LAUREN BULLOCK NP ? EXAMINATION: ??US BLADDER ? HISTORY: pelvic pain, frequency ? COMPARISON: There are no prior studies for comparison. ? FINDINGS: ??Sonographic examination of the urinary bladder was performed ?? before and after voiding. Before voiding, the urinary bladder measured ?? 11.4 x 7.7 x 8.8, for an estimated volume of404 mL. ??After voiding, the ?? urinary bladder measured 4.4 x 2.6 x 4.6, for an estimated volume of 28 ?? mL. ??The urinary bladder wall is mildly thickened measuring up to 6 mm ?? in thickness. No mass is identified. ??Bilateral ureteral jets are ?? identified. The prostate measures 2.8 x 2.6 x 3.7 cm. ? US/US bladder ?? IMPRESSION: ?? Urinary bladder wall thickening which can be seen in the setting of ?? cystitis. Post void bladder residual 28 mL. ? Electronically signed by: ??Stephan Noriega MD ??02/15/2025 07:08 AM EDT ? Dictated By: ?Stephan Noriega MD ? Signed By: ?<Electronically signed by Stephan Noriega MD in OV> ?02/15/25707 ? DD/ 1539 ? TD/TT: 02/12/25 1545 ? [employer] Calenderer: ? Procedure Note Donotsvitlanater, Image - 02/15/2025 [place] [address] Ultrasound Report Signed Patient: Ricardo IsaacsMR#: [id number] 6 : 1985Acct:[id number] Age/Sex: 39 / MADM Date: 02/12/25 Loc: HO.US Attending Dr: Lauren Bullock NP Ordering Physician: LAUREN BULLOCK NP Date of Service: 02/12/25 Procedure(s): US bladder Accession Number(s): [id number] cc: Stefan Bahena MD; LAUREN BULLOCK NP EXAMINATION: US BLADDER HISTORY: pelvic pain, frequency COMPARISON: There are no prior studies for comparison. FINDINGS: Sonographic examination of the urinary bladder was performed before and after voiding. Before voiding, the urinary bladder measured 11.4 x 7.7 x 8.8, for an estimated volume of404 mL. After voiding, the urinary bladder measured 4.4 x 2.6 x 4.6, for an estimated volume of 28 mL. The urinary bladder wall is mildly thickened measuring up to 6 mm in thickness. No mass is identified. Bilateral ureteral jets are identified. The prostate measures 2.8 x 2.6 x 3.7 cm. US/US bladder IMPRESSION: Urinary bladder wall thickening which can be seen in the setting of cystitis. Post void bladder residual 28 mL. Electronically signed by: Stephan Noriega MD 02/15/2025 07:08 AM EDT Dictated By: Stephan Noriega MD Signed By: <Electronically signed by Stephan Noriega MD in OV> 02/15/25 0708 DD/ 1539 TD/TT: 02/12/25 1545 [employer] Calenderer: Lauren Bullock ANP IMG US PROCEDURES Edited Result - Final * Hepatitis A,B,C Profile (01/22/2025 12:30 PM EDT) Hepatitis A IgM Nonreactive Nonreactive [facility] Comment:IgM antibodies to GALLAGHER V not detected; does not exclude earlyacute or recovered HAV infection. ~Hepatitis B Surface Antibody NONREACTIVE Nonreactive [facility] Comment:Nonreactive: < 8.00 mIU/mL Hepatitis B Core Antibody Nonreactive Nonreactive [facility] Hepatitis C Antibody Nonreactive Nonreactive [facility] Comment:Antibodies to HCV no t detected; does not exclude early acuteHCV infection. Hepatitis B Surface Ag Negative Negative [facility] Blood Venous blood specimen / Unknown 01/22/2025 12:30 PM EDT 01/22/2025 1:13 PM EDT Lauren Bullock [facility] BLOOD ORDERABLES Final Resul t [facility] [address] [place] [phone] * HIV-1/2 Antigen and Antibodies, Fourth Generation, with Reflexes (01/22/2025 12:30 PM EDT) HIV AB/AG Nonreactive Nonreactive [facility] Comment:HIV-1 p24 Ag and/or HIV-1/HIV-2 Ab not detected.A test result that is nonreactive does not exclude thepossibility of exposure to or infection with HIV-1 and/orHIV-2. Nonreactive results in this assay for individualswith prior exposure to HIV-1 and/or HIV-2 may be due toantigen and antibody levels that are below the limit ofdetection of this assay.The [employer] HIV Ag/Ab Combo assay result andsupplemental assay results should be interpreted inconjunction with the patient's clinical presentation,history and other laboratory results. If the results areinconsistent with clinical evidence, additional testing issuggested to confirm the result. Blood Venous blood specimen / Unknown 01/22/2025 12:30 PM EDT 01/22/2025 1:13 PM EDT Lauren Bullock [facility] BLOOD ORDERABLES Final Resul t Performing Organization Address [facility] Co de Phone Number [facility] [address] [place] [phone] * PSA,Total (01/22/2025 12:30 PM EDT) Prostate Specific Antigen 0.32 <0.05 - 4.0 ng/mL [facility] Comment:PSA methodology: Doreen Burgos i ChemiluminescentMicroparticle Immunoassay (CMIA) Blood Venous blood specimen / Unknown 01/22/2025 12:30 PM EDT 01/22/2025 1:13 PM EDT Lauren Bullock [facility] BLOOD ORDERABLES Final Resul t Performing Organization Address [facility] de Phone Number [facility] [address] [place] [phone] * Hemoglobin A1c (01/22/2025 12:30 PM EDT) Hemoglobin A1c 5.8 <6.0 % [facility] Comment:Hemoglobin A1C Refer ence Range Adults: 4.8 - 6.0 % Non diabetic: < 6.0 % Goal: < 7.0 %Additional Action Suggested: > 8.0 %Note: Hemoglobin A1c results are invalid for patients with abnormal amounts of HbF. Blood transfusions may impact the HbA1c concentration in the patient sample. Estimated Average Glucose 120 mg/dL [facility] Comment:eAG = Estimated ave rage glucose which is %A1C expressed asaverage glucose, using the formula of the [id number] Glucose study (ADAG), Diabetes Care, Vol.31,#8,2007 Blood Venous blood specimen / Unknown 01/22/2025 12:30 PM EDT 01/22/2025 1:13 PM EDT Lauren Bullock ANP LAB BLOOD ORDERABLES Final Resul t Performing Organization Address [facility] de Phone Number [facility] [address] [place] [phone] * Urinalysis, Complete, with Reflex to Culture (01/22/2025 12:19 PM EDT) Color Urine Yellow [facility] Appearance Urine Clear [facility] PH 6.5 5.0 - 9.0 [facility] Glucose Urine UA Negative Negative mg/dL [facility] Urine Blood Negative Negative [facility] Specific [place] - Urine 1.025 1.005 - 1.025 [facility] Urine Protein Negative Neg-Trace mg/dL [facility] Urine Ketones Negative Negative mg/dL [facility] Nitrite Urine Negative Negative [facility] Leukocyte Esterase Urine Negative Negative [facility] RBC Urine 0-2 0 - 2 /HPF [facility] Urine WBC 0-5 0 - 5 /HPF [facility] Urine Squamous Epithelial Cell 0-2 0 - 2 /HPF [facility] Urine Bacteria None Seen None Seen [facility] Hyaline Casts, Urine 0-2 0 - 2 /LPF [facility] Urine 01/22/2025 12:1 9 PM EDT 01/22/2025 4:31 PM EDT Narrative [facility] - 01/22/2025 4:55 PM EDT Urine, Clean Catch Lauren Bullock ANP LAB URINE ORDERABLES Final Resul t Performing Organization Address [facility] Co de Phone Number [facility] [address] [place] [phone] * Chlamydia/N. Gonorrhoeae RNA, TMA, Urogenitial (01/22/2025 12:19 PM EDT) CT PCR NOT DETECTED Not Detect. [facility] Comment:A not detected test result [...] psychologicalconsequences. NG PCR NOT DETECTED Not Detect. [facility] Comment:A not detected test result [...] PM EDT 01/22/2025 4:31 PM EDT Narrative [facility] - 01/23/2025 4:46 PM EDT Urine Lauren Bullock [facility] MICROBIOLOGY - GENERAL ORDER [place] Final Result [facility] [address] [place] [phone] from Last 3 Months Insurance [employer] [facility] Care Teams Supervisor [employer] Relationship Specialty Start Date End Date Stefan Reece MD [address] [place] [phone] PCP - General Internal Medicine 02/09/21
--- NOTE | 2025-03-23 07:54 | MHC.OFFVIS ---
Intake Visit Reasons: pelvic pain/nocturia/urgency Intake Note: Pt presents to the office today for a new patient visit for pelvic pain/nocturia/urgency. Urology Meds:Tamsulosin PVR:43ml Manager Finance Name: Yu Etienne825 Allergies No Known Allergies Allergy (Unverified 03/23/25 08:38) Medication List - Last Reconciled 03/23/25 by BOB Taylor omeprazole 20 mg PO DAILY HPI Comments Details: Ricardo is a Estonian-speaking 40-year-old male patient of Dr. Bahena. He has a past medical history of epigastric pain, pelvic pain, nocturia, urinary frequency, hemorrhoids, constipation, dysphagia, IBS, GERD, and abdominal pain. He presents to the office today as a new patient for ongoing lower urinary tract symptoms he has been experiencing. In discussion with the patient today he reports while incarcerated many years ago he underwent a cystoscopy for ongoing lower urinary tract symptoms he has been experiencing for many years. He reports episodes of urinary urgency, urinary frequency, nocturia, and feeling of incomplete bladder emptying. He reports being told after cystoscopy performed his bladder was inflamed. He reports being on Flomax with no improvement in lower urinary tract symptoms. In review of patient's chart it appears he has had a bladder ultrasound as well as a PSA. These results were reviewed and communicated with the patient today. 25 pre void bladder volume is approximately 400 mL. Postvoid bladder volume is approximately 30 mL. The urinary bladder wall is mildly thickened measuring up to 6 mm in thickness. No masses identified. The prostate measures approximately 14 mL. PSA 01/26 0.3. In office urinalysis results reviewed with the patient today pH 5.5 otherwise within normal limits. We discussed potential causes of lower urinary tract symptoms patient is experiencing as well as further treatment options and risks and benefits of these treatment options. BITA offered however deferred. We discussed bladder triggers and irritants. We discussed the importance of adequate hydration relation to lower urinary tract symptoms and pH of 5.5 on urinalysis today. He denies incontinence, hematuria, dysuria, foul smelling urine, changes to urinary stream, flank pain, fever, and or chills. He otherwise offers no other issues or concerns at this time. [facility] Medical History (Updated 03/23/25 @ 08:53 by BOB Taylor) Epigastric pain Elevated blood pressure reading without diagnosis of hypertension Pelvic pain Nocturia Urinary frequency Hemorrhoids Heart burn Constipation Dysphagia IBS (irritable bowel syndrome) GERD (gastroesophageal reflux disease) H/O urinary frequency Hematochezia Abdominal pain Review of Systems Const All systems reviewed & are unremarkable except as noted in HPI and below Physical Exam Const General: cooperative, healthy appearing, comfortable, no acute distress, well developed, alert and awake Orientation/consciousness: patient oriented x3 Limitations: no limitations HEENT Head: Yes normal to inspection, Yes normocephalic and Yes atraumatic Ears: hearing grossly normal bilaterally Eyes General: appearance normal, both eyes and all related structures Neck Neck: Yes normal visual inspection and Yes trachea midline Chest Chest palpation & inspection: normal inspection of the chest Resp Effort & Inspection: normal respiratory effort and able to speak in complete sentences Cardio Rate: regular rate GI Inspection: Yes normal to inspection General: Yes no CVA tenderness Back/Spine/Pelvis Back: no CVA tenderness Skin General skin exam: no rashes or lesions noted Neuro General: patient oriented x3 Extrem General: Yes normal to inspection Psych Appearance: grossly normal and well kempt Mental Status: mental status grossly normal Speech and movement: Normal speech and movement present and Clear speech present Affect: normal affect Attitude: cooperative Thought process: Normal thought process present Thought content: Normal thought content present Insight: Fair insight present (Psych) Judgement: Fair judgement present (Psych) Office Procedures Post Void Residual Post Residual Void Post Void Residual (PVR): 43 [id number] Void Residual by ultrasound Results AMB Urinalysis, Automated UA Leukoctes 0 Lyla/uL Last Edit by Beatriz Kaur CMA on 03/23/25 08:00 UA Nitrite Negative Last Edit by Beatriz Kaur CMA on 03/23/25 08:00 UA Urobilinogen 17 mg/dL Last Edit by Beatriz Kaur CMA on 03/23/25 08:00 UA Protein 0 mg/dL Last Edit by Beatriz Kuar CMA on 03/23/25 08:00 UA pH 5.5 Last Edit by Beatriz Kaur CMA on 03/23/25 08:00 UA Blood 0 Arron/uL Last Edit by Beatriz Kaur CMA on 03/23/25 08:00 UA Specific [place] 1.025 Last Edit by Beatriz Kaur CMA on 03/23/25 08:00 UA Ketone Negative Last Edit by Beatriz Kaur CMA on 03/23/25 08:00 UA Bilirubin 0 mg/dL Last Edit by Beatriz Kaur CMA on 03/23/25 08:00 UA Glucose 0 mg/dL Last Edit by Beatriz Kaur CMA on 03/23/25 08:00 Results Reviewed Results Reviewed: Laboratory Last Values Urine pH (Auto) 5.5 03/23/25 07:55 Specific [place] (Auto) 1.025 03/23/25 07:55 Urine Protein (Auto) 0 mg/dL 03/23/25 07:55 Glucose (UA)(Auto) 0 mg/dL 03/23/25 07:55 Urine Ketones (Auto) Negative 03/23/25 07:55 Urine Blood (Auto) 0 Arron/uL 03/23/25 07:55 Urine Nitrite (Auto) Negative 03/23/25 07:55 Urine Bilirubin (Auto) 0 mg/dL 03/23/25 07:55 Urine Urobilinogen (Auto) 17 mg/dL 03/23/25 07:55 Leukocyte Esterase (Auto) 0 Lyla/uL 03/23/25 07:55 Date of Service: 02/12/25 Procedure(s): US bladder FINDINGS: Sonographic examination of the urinary bladder was performed before and after voiding. Before voiding, the urinary bladder measured 11.4 x 7.7 x 8.8, for an estimated volume of404 mL. After voiding, the urinary bladder measured 4.4 x 2.6 x 4.6, for an estimated volume of 28 mL. The urinary bladder wall is mildly thickened measuring up to 6 mm in thickness. No mass is identified. Bilateral ureteral jets are identified. The prostate measures 2.8 x 2.6 x 3.7 cm. IMPRESSION: Urinary bladder wall thickening which can be seen in the setting of cystitis. Post void bladder residual 28 mL. Assessment & Plan Assessment & Plan (1) Lower urinary tract symptoms: Code(s): R39.9 - Unspecified symptoms and signs involving the genitourinary system Category: Medical (2) Feeling of incomplete bladder emptying: Code(s): R39.14 - Feeling of incomplete bladder emptying Category: Medical (3) Urinary frequency: Code(s): R35.0 - Frequency of micturition Category: Medical (4) Nocturia: Code(s): R35.1 - Nocturia Category: Medical (5) Bladder wall thickening: Code(s): N32.89 - Other specified disorders of bladder Category: Medical Plan In office urinalysis results reviewed with the patient today; as noted above. PVR 43 mL. We discussed bladder triggers/irritants. Stop Flomax. Start terazosin as discussed and prescribed. Start low-dose tadalafil as discussed and prescribed. BITA offered however deferred We discussed potential causes of lower urinary tract symptoms patient is experiencing as well as further treatment options and risks and benefits of these treatment options. We discussed importance of adequate hydration relation to lower urinary tract symptoms as well as overall health and well-being. Recent PSA results reviewed with the patient today; as noted above. Recent bladder ultrasound results reviewed with the patient today; as noted above. Follow-up in 3 months with PVR; or sooner with any issues, concerns, and or questions. Orders: Orders AMB Urinalysis Automated Today R10.2 - Pelvic and perineal pain AMB Post Void Residual by ultrasound Today R35.1 - Nocturia Medications: New terazosin 5 mg PO BEDTIME 30 days 30 caps 3RF N40.1 - Benign prostatic hyperplasia with lower urinary tract symptoms, R35.0 - Frequency of micturition tadalafil (Cialis) [id number] [facility] [id number] Member [id number] 5 mg PO DAILY 90 days 90 tabs 1RF Patient Instructions: The patient had an opportunity to ask questions regarding the treatment plan. All questions were answered. Physical exam, labs, and imaging were discussed and reviewed in detail. As well as risks, benefits, and discussion of treatment choices. No major barriers to understanding were identified. The patient expressed understanding and agreement with the above treatment plan. The patient was made aware they should contact our office by phone for worsening of their current condition, the appearance of new symptoms, or with any questions or concerns. Compliance is encouraged with any medications and follow up testing that is ordered. It is a privilege to be allowed the opportunity to participate in? your urological care.? Again, if you have any questions or concerns If you have any questions or concerns please do not hesitate to contact me. The office is [phone]. This note is constructed using voice recognition software. While every effort has been made to ensure accuracy special procedures nurse errors may have been included. Yours sincerely, STANLEY Taylor-BC Coding Level of Care Code New Pt Level 4 (51503) Diagnoses Lower urinary tract symptoms R39.9 Feeling of incomplete bladder emptying R39.14 Urinary frequency R35.0 Nocturia R35.1 Bladder wall thickening N32.89 CPT Codes Post Residual Void - PVR CPT Code: 25173-Vatv Void Residual by ultrasound ([id number])
== END 2025-03-23 08:35 | disposition home or self-care (01) ==
LOC: HO.HUSH 07:50
PROVIDERS: PCP Internal Medicine; Visit Provider Nurse Practitioner Family
DX: R39.9 Unspecified symptoms and signs involving the genitourinary system (principal); R39.14 Feeling of incomplete bladder emptying; R35.0 Frequency of micturition; R35.1 Nocturia; N32.89 Other specified disorders of bladder; R10.2 Pelvic and perineal pain
CPT/HCPCS: 99204

== ENCOUNTER 2025-03-23 07:49 | Outpatient (REF) | payer OTHER, SELFPAY ==
--- OUTSIDE RECORDS SUMMARY | 2025-03-23 09:45 | XMS_ITS | Clinical Summary ---
Author Organization [employer] Address [address] [facility] [address] [place] [address] Care Team Providers Care Aoc Director Intelligence Officer Name Role Phone Stefan Reece MD Primary [...] Type Department Care Team Description 02/15/2025 Telephone [facility] [address] [place] [phone] Lauren Bullock ANP Results 01/22/2025 11:30 AM EDT Office Visit [facility] [address] [place] [address] Lauren Bullock ANP Urinary frequency (Primary Dx); Nocturia; Pelvic pain; Elevated blood pressure reading without diagnosis of hypertension; Epigastric pain; Healthcare maintenance; Encounter for immunization; Former smoker 01/22/2025 Travel 01/20/2025 Telephone [facility] [address] [place] [address] Stefan Reece MD ER Follow-up [...] Description 04/01/2025 2:30 PM EDT Office Visit [facility] [address] [facility] [place] [phone] Stefan Reece MD [address] [facility] [place] [address] Health Maintenance Due Date Last Done Comments [...] EDT Narrative 02/15/2025 7:11 AM EDT ? [facility] ?[address] ?[place] [address] ? Ultrasound Report ? Signed ? Patient: Ricardo Isaacs ?MR#: [id number] ?? 6 ? : 1985 ?Acct:[id number] ? Age/Sex: 39 / M ?ADM Date: 02/12/25 ? Loc: HO.US ? Attending Dr: Lauren Bullock NP ? Ordering Physician: LAUREN BULLOCK NP ?? Date of Service: 02/12/25 ?? Procedure(s): US bladder ?? Accession Number(s): [id number] ? cc: Stefan Bahena MD; LAUREN BULLOCK [...] DD/ 1539 ? TD/TT: 02/12/25 1545 ? Nurse Coordinator: ? Procedure Note Donotsvitlanater, Image - 02/15/2025 [place] [address] Ultrasound Report Signed Patient: Ricardo IsaacsMR#: [id number] 6 : 1985Acct:[id number] Age/Sex: 39 / MADM Date: 02/12/25 Loc: HO.US Attending Dr: Lauren Bullock NP Ordering Physician: LAUREN BULLOCK NP Date of Service: 02/12/25 Procedure(s): US bladder Accession Number(s): [id number] cc: Stefan Bahena MD; LAUREN BULLOCK NP [...] 02/15/25 0708 DD/ 1539 TD/TT: 02/12/25 1545 Nurse Coordinator: Lauren Bullock ANP IMG US PROCEDURES Edited Result - Final * Hepatitis A,B,C Profile (01/22/2025 12:30 PM EDT) Hepatitis A IgM Nonreactive Nonreactive [facility] Comment:IgM antibodies to GALLAGHER V not detected; does not exclude earlyacute or recovered HAV infection. ~Hepatitis B Surface Antibody NONREACTIVE Nonreactive [facility] Comment:Nonreactive: < 8.00 mIU/mL Hepatitis B Core Antibody Nonreactive Nonreactive [facility] Hepatitis C Antibody Nonreactive Nonreactive [facility] Comment:Antibodies to HCV no t detected; does not exclude early acuteHCV infection. Hepatitis B Surface Ag Negative Negative [facility] Blood Venous blood specimen / Unknown 01/22/2025 12:30 PM EDT 01/22/2025 1:13 PM EDT Lauren Bullock [facility] BLOOD ORDERABLES Final Resul t [facility] [address] [place] [phone] * HIV-1/2 Antigen and Antibodies, Fourth Generation, with Reflexes (01/22/2025 12:30 PM EDT) HIV AB/AG Nonreactive Nonreactive [facility] Comment:HIV-1 p24 Ag and/or HIV-1/HIV-2 Ab not detected.A test result that is nonreactive does not exclude thepossibility of exposure to or infection with HIV-1 and/orHIV-2. Nonreactive results in this assay for individualswith prior exposure to HIV-1 and/or HIV-2 may be due toantigen and antibody levels that are below the limit ofdetection of this assay.The Duxter HIV Ag/Ab Combo assay result andsupplemental assay results should be interpreted inconjunction with the patient's clinical presentation,history and other laboratory results. If the results areinconsistent with clinical evidence, additional testing issuggested to confirm the result. Blood Venous blood specimen / Unknown 01/22/2025 12:30 PM EDT 01/22/2025 1:13 PM EDT Lauren Bullock [facility] BLOOD ORDERABLES Final Resul t Performing Organization Address [facility] Co de Phone Number [facility] [address] [place] [phone] * PSA,Total (01/22/2025 12:30 PM EDT) Prostate Specific Antigen 0.32 <0.05 - 4.0 ng/mL [facility] Comment:PSA methodology: Doreen Burgos i ChemiluminescentMicroparticle Immunoassay (CMIA) Blood Venous blood specimen / Unknown 01/22/2025 12:30 PM EDT 01/22/2025 1:13 PM EDT Lauren Bullock [facility] BLOOD ORDERABLES Final Resul t Performing Organization Address [facility] de Phone Number [facility] [address] [place] [phone] * Hemoglobin A1c (01/22/2025 12:30 PM EDT) Hemoglobin A1c 5.8 <6.0 % [facility] Comment:Hemoglobin A1C Refer ence Range Adults: 4.8 - 6.0 % Non diabetic: < 6.0 % Goal: < 7.0 %Additional Action Suggested: > 8.0 %Note: Hemoglobin A1c results are invalid for patients with abnormal amounts of HbF. Blood transfusions may impact the HbA1c concentration in the patient sample. Estimated Average Glucose 120 mg/dL [facility] Comment:eAG = Estimated ave rage glucose which is %A1C expressed asaverage glucose, using the formula of the Z7Y-FdhdehoBwazjtd Glucose study (ADAG), Diabetes Care, Vol.31,#8,2007 Blood Venous blood specimen / Unknown 01/22/2025 12:30 PM EDT 01/22/2025 1:13 PM EDT Lauren Bullock ANP LAB BLOOD ORDERABLES Final Resul t Performing Organization Address [facility] de Phone Number [facility] [address] [place] [phone] * Urinalysis, Complete, with Reflex to Culture (01/22/2025 12:19 PM EDT) Color Urine Yellow [facility] Appearance Urine Clear [facility] PH 6.5 5.0 - 9.0 [facility] Glucose Urine UA Negative Negative mg/dL [facility] Urine Blood Negative Negative [facility] Specific [place] - Urine 1.025 1.005 - 1.025 [facility] Urine Protein Negative Neg-Trace mg/dL [facility] Urine Ketones Negative Negative mg/dL [facility] Nitrite Urine Negative Negative [facility] Leukocyte Esterase Urine Negative Negative [facility] RBC Urine 0-2 0 - 2 /HPF [facility] Urine WBC 0-5 0 - 5 /HPF [facility] Urine Squamous Epithelial Cell 0-2 0 - 2 /HPF [facility] Urine Bacteria None Seen None Seen [facility] Hyaline Casts, Urine 0-2 0 - 2 /LPF [facility] Urine 01/22/2025 12:1 9 PM EDT 01/22/2025 4:31 PM EDT Narrative [facility] - 01/22/2025 4:55 PM EDT Urine, Clean Catch Lauren Bullock ANP LAB URINE ORDERABLES Final Resul t Performing Organization Address [facility] Co de Phone Number [facility] [address] [place] [phone] * Chlamydia/N. Gonorrhoeae RNA, TMA, Urogenitial (01/22/2025 12:19 PM EDT) CT PCR NOT DETECTED Not Detect. [facility] Comment:A not detected test result [...] psychologicalconsequences. NG PCR NOT DETECTED Not Detect. [facility] Comment:A not detected test result [...] PM EDT 01/22/2025 4:31 PM EDT Narrative [facility] - 01/23/2025 4:46 PM EDT Urine Lauren Bullock [facility] MICROBIOLOGY - GENERAL ORDER S[place] Final Result [facility] [address] [place] [phone] from Last 3 Months Insurance [employer] [facility] Care Teams Aoc Director Intelligence Officer Relationship Specialty Start Date End Date Stefan Reece MD [address] [place] [phone] PCP - General Internal Medicine 02/09/21
--- OUTSIDE RECORDS SUMMARY | 2025-03-23 09:45 | XMS_ITS | Clinical Summary ---
Author Organization [facility] Address [address] [place] [address] Phone Care Team Providers Care Heater Helper Name Role Phone Physician, Pcp Unknown Primary Care Provider Yasmin vailable Allergies No known active allergies Encounters Date Type Department Care Team Description 01/18/2025 7:41 AM EDT - 01/18/2025 10:23 AM EDT Emergency [facility] Emergency [address] [place] [address] Dmitri Henriquez MD Lower abdominal [...] No acute abdominal process identified. Telerad RAMONITA ([id number]) -------- FINAL REPORT -------- Dictated By: Valery Vasques Dictated Date: 01/18/2025 09:13 ET Assigned Physician: Valery Vasques Reviewed and Electronically Signed By: Valery Vasques Signed Date: 01/18/2025 09:16 ET Workstation ID: [id number] Transcribed By: Self Edit Transcribed Date: 01/18/2025 09:13 ET Narrative 01/18/2025 9:16 AM EDT History: Abdominal pain. Comparison: 01/26/21 Technique: Helical volumetric imaging of the abdomen and pelvis was performed during the uneventful intravenous administration of 90 cc Isovue-370. DLP: 1277.86 mGy/cm [employer] VCT Iterative reconstruction technique Findings: The liver [...] administration of 90 ccIsovue-370. DLP: 1277.86 mGy/cm [employer] VCT Iterative reconstruction technique Findings: The liver [...] Impression: [place] ([id number]) -------- FINAL REPORT -------- Dictated By: Valery Vasques Dictated Date: 01/18/2025 09:13 ET Assigned Physician: Valery Vasques Reviewed and Electronically Signed By: Valery Vasques Signed Date: 01/18/2025 09:16 ET Workstation ID: [id number] Transcribed By: Self Edit Transcribed Date: 01/18/2025 09:13 ET Dmitri Henriquez MD IMG CT PROCEDURES Final R esult * (ABNORMAL) Urinalysis with reflex microscopic and culture (01/18/2025 8:02 AM EDT) Specific [place] Urine 1.025 1.003 - 1.030 LAB URINALYSIS [...] MD LAB URINE ORDERABLES Zuly l Result [facility] [address] [place] [address], [place] [phone] * Farmer urine culture tube (01/18/2025 8:02 AM EDT) [facility] Extra Tube Hold for add-ons. 01/18/2025 10:02 AM EDT [facility] Comment:Auto resulted. Urine Urine specimen obtained by clean catch procedure / Unknown Non-blood Collection / Unknown 01/18/2025 8:02 AM EDT 01/18/2025 8:17 AM EDT us Dmitri Henriquez MD LAB URINE ORDERABLES Zuly leonard Result [facility] [address] [place] [address], [place] [phone] * CBC auto differential (01/18/2025 7:40 AM EDT) [facility] WBC 8.1 4.8 - 10.8 K/mcL LAB HEMETOLOGY METHOD 01/18/2025 7:59 AM EDT [facility] RBC 5.10 4.50 - 5.50 M/mcL LAB HEMETOLOGY METHOD 01/18/2025 7:59 AM EDT [facility] Hemoglobin 16.1 13.5 - 17.5 g/dL LAB HEMETOLOGY METHOD 01/18/2025 7:59 AM EDT [facility] Hematocrit 47.5 42.0 - 54.0 % LAB HEMETOLOGY METHOD 01/18/2025 7:59 AM EDT [facility] MCV 93.3 79.0 - 98.0 FL LAB HEMETOLOGY METHOD [facility]25 [facility] MCH 31.6 27.0 - 32.0 pcg LAB HEMETOLOGY METHOD [facility]/18[facility]2025 7[facility] MCHC 33.9 32.0 - 37.0 g/dL [...] LAB HEMETOLOGY METHOD 01/18/2025 7:59 AM EDT [facility] Monocytes Absolute 0.66 0.20 - 1.00 K/mcL LAB HEMETOLOGY METHOD 01/18/2025 7:59 AM EDT [facility] Eosinophils Absolute 0.23 0.00 - 0.50 K/[facility] LAB HEMETOLOGY METHOD 01/18/2025 7:59 AM EDT [facility] Basophils Absolute 0.05 0.00 - 0.20 K/[facility] HEMETOLOGY METHOD 01/18/2025 7:59 AM EDT [facility] Immature Granulocytes Absolute 0.02 0.00 - 0.03 K/[facility] HEMETOLOGY METHOD 01/18/2025 7:59 AM EDT [facility] Blood Venous blood specimen / Unknown Venipuncture / Unknown 01/18/2025 7:40 AM EDT 01/18/2025 7:50 AM EDT Dmitri Henriquez MD LAB BLOOD ORDERABLES Zuly l Result [facility] [address] [place] [address], [place] [phone] * Lipase (01/18/2025 7:40 AM EDT) Lipase 49 13 - 75 unit/L LAB CHEMISTRY METHOD 01/18/2025 8:49 AM EDT [facility] Blood Venous blood specimen / Unknown Venipuncture / Unknown 01/18/2025 7:40 AM EDT 01/18/2025 7:50 AM EDT Dmitri Henriquez MD LAB BLOOD ORDERABLES Zuly l Result [facility] [address] [place], [place] [address] [phone] * (ABNORMAL) Comprehensive metabolic panel (01/18/2025 7:40 [...] LAB CHEMISTRY METHOD 01/18/2025 8:29 AM EDT [facility] Alkaline Phosphatase 59 42 - 121 unit/L LAB CHEMISTRY METHOD 01/18/2025 8:29 AM EDT [facility] Total Protein 7.2 6.0 - 8.0 g/dL LAB CHEMISTRY METHOD 01/18/2025 8:29 AM EDT [facility] Albumin 3.7 3.2 - 5.0 g/dL LAB CHEMISTRY METHOD 01/18/2025 8:29 AM EDT [facility] Total Bilirubin 0.6 0.0 - 1.4 mg/dL LAB CHEMISTRY METHOD 01/18/2025 8:29 AM EDT [facility] Blood Venous blood specimen / Unknown Venipuncture / Unknown 01/18/2025 7:40 AM EDT 01/18/2025 7:50 AM EDT us Dmitri Henriquez MD LAB BLOOD ORDERABLES Zuly l Result [facility] [address] [place] [address], from Last 3 Months Insurance MEDICAID - [place] Care Teams Heater Helper Relationship Specialty Start Date End Date Physician, Pcp Unknown PCP - General 01/18/25
[2025-03-23 16:13] LABS: Urine Cytology See Pathology rpt
== END 2025-03-23 07:50 | disposition home or self-care (01) ==
LOC: HO.LAB 07:49
PROVIDERS: PCP Internal Medicine; Visit Provider Nurse Practitioner Family
DX: N30.90 Cystitis, unspecified without hematuria (principal); R39.9 Unspecified symptoms and signs involving the genitourinary system; R35.0 Frequency of micturition; R35.1 Nocturia; R10.2 Pelvic and perineal pain
CPT/HCPCS: 51798; 81003; 88112; 99202

== ENCOUNTER 2025-05-05 13:28 | Outpatient (AMB) | payer OTHER, SELFPAY ==
--- NOTE | 2025-05-05 13:29 | MHC.OFFVIS ---
Vital Signs 05/05/25 13:34 Height 5 ft 8 in Weight 230 lb BMI 35.0 BP 134/78 Blood Pressure Location Rt brachial Position Sitting Pulse 94 Pulse Source Pulse Oximeter Pulse Oximetry (%) 95 Oxygen Delivery Method Room Air Intake Visit Reasons: Epigastric Pains Intake Note: New pt for initial eval of epigastric pains. Documented hx of GERD + IBS. Seen at [facility] ED 01/2025. No pertinent findings on CT scan per PCP. CC; C.O. abd pain (epigastric) since being seen in the ED 01/2025. No additional sx or concerns at this time. No hx of colo or EGD. FMHx esophageal cancer (father). Rn Enterostomal Required: Yes Rn Enterostomal Services: Rn Enterostomal Present Rn Enterostomal Name: Aurora (? ID) Information Interpreted: clinical only Accompanied by: Self / Same As Patient Allergies No Known Allergies Allergy (Unverified 05/05/25 13:30) Medication List - Last Reconciled 05/05/25 by BOB Polanco tadalafil (Cialis) 5 mg PO DAILY 90 days terazosin 5 mg PO BEDTIME 30 days HPI HPI Epigastric Pains: Details: 40-year-old male with past medical history of hypertension, epigastric pain, IBS, urinary frequency, hemorrhoids, hematochezia, GERD is here today for initial consultation. Patient was sent to us by his PCP. Patient was seen in ED at [facility] in January of 2025 for epigastric pain, nausea, vomiting and diarrhea. Patient's labs as well as CT scan was negative for any acute findings. No leukocytosis, normal liver enzymes and lipase. CT scan without any acute processes. Patient reports that since then he has been having epigastric pain and no metal what he eats. Patient usually eats couple meals a day and they are usually large meals. Currently patient is not having any nausea or vomiting. Is moving his bowels better now. Denies having diarrhea since he started taking probiotics about few weeks ago. Denies any fever or chills. Reports severe abdominal bloating. Sometimes bloating is visible specially in the epigastric area. No episode of hematochezia since the one that lasted 3 days about few months ago [facility] Medical History (Updated 05/05/25 @ 20:16 by BOB Polanco) Epigastric pain Elevated blood pressure reading without diagnosis of hypertension Pelvic pain Nocturia Urinary frequency Hemorrhoids Heart burn Constipation Dysphagia IBS (irritable bowel syndrome) GERD (gastroesophageal reflux disease) H/O urinary frequency Hematochezia Abdominal pain Family History Father Esophageal cancer Review of Systems Const Denies weight gain and Denies weight loss ENT Reports no additional complaints, Denies dysphagia and Denies odynophagia Card Reports no additional complaints Resp Reports no additional complaints GI Reports abdominal pain (upper abdominal, epigastric), Denies belching, Denies melena, Reports bloating, Reports hematochezia (over a period of 3 days few months ago), Denies change in bowel habits, Denies constipation, Denies dysphagia, Denies excessive flatus, Denies dyspepsia, Denies heartburn, Denies diarrhea, Denies loose stools, Denies nausea, Denies odynophagia and Denies vomiting Reports no additional complaints Musc Reports no additional complaints Neuro Reports no additional complaints Psych Reports no additional complaints Endo Reports no additional complaints Physical Exam Vital Signs: Last Vital Signs Pulse 94 05/05/25 13:34 BP 134/78 05/05/25 13:34 Pulse Ox 95 05/05/25 13:34 Oxygen Delivery Method Room Air 05/05/25 13:34 BMI result Body Mass Index 35.0 Const General: healthy appearing, no acute distress and well developed Nutritional Appearance: well nourished and obese Orientation/consciousness: patient oriented x3 Resp Effort & Inspection: normal respiratory effort, able to speak in complete sentences, no tracheal deviation and symmetric chest movement Auscultation: clear to auscultation bilaterally Cardio Rate: regular rate GI Inspection: Yes normal to inspection, No distended and Yes obesity Palpation (GI): Soft to palpation, not firm, nontender and No hepatosplenomegaly present Auscultation: normal bowel sounds General: Yes no CVA tenderness Back/Spine/Pelvis Back: no CVA tenderness Skin General skin exam: elasticity normal, turgor normal and dry skin Neuro General: patient oriented x3 Psych Appearance: grossly normal Mental Status: mental status grossly normal Assessment & Plan Assessment & Plan (1) GERD (gastroesophageal reflux disease): Code(s): K21.9 - Gastro-esophageal reflux disease without esophagitis Category: Medical Qualifiers: Esophagitis presence: esophagitis presence not specified Qualified Code(s): K21.9 - Gastro-esophageal reflux disease without esophagitis (2) Postprandial abdominal bloating: Code(s): R14.0 - Abdominal distension (gaseous) (3) Dysphagia: Code(s): R13.10 - Dysphagia, unspecified Category: Medical Qualifiers: Dysphagia type: pharyngeal phase Qualified Code(s): R13.13 - Dysphagia, pharyngeal phase (4) IBS (irritable bowel syndrome): Code(s): K58.9 - Irritable bowel syndrome, unspecified Category: Medical Qualifiers: Irritable bowel syndrome type: without diarrhea Qualified Code(s): K58.9 - Irritable bowel syndrome, unspecified (5) Abdominal pain: Code(s): R10.9 - Unspecified abdominal pain Category: Medical Qualifiers: Abdominal location: epigastric Qualified Code(s): R10.13 - Epigastric pain (6) Epigastric pain: Code(s): R10.13 - Epigastric pain Category: Medical Plan Discussed with patient about dietary changes. Eating smaller meals and more often. Avoid eating late at night. Staying upright for minimal 3 hours after meals discussed with patient. Will do H pylori breath test in the office. Patient had negative stool stool H pylori in November of 2023 her PCPs notes. Will check lipase, transglutaminase. Patient will be sent for upper GI with barium swallow to evaluate for reflux. Will start him on pantoprazole daily. Patient will call us if he will have any additional/concerning symptoms. He will follow-up in 3 months, sooner on as needed basis. He is agreeable to current plan of care and verbalizes understanding of instructions were given opportunity to ask questions and all questions answered. Thank you for allowing me to participate in his care Orders: Orders H Pylori Breath Test Today K21.9 - Gastro-esophageal reflux disease without esophagitis Lipase Today R10.9 - Unspecified abdominal pain FL upper GI w Ba Swallow Today K21.9 - Gastro-esophageal reflux disease without esophagitis Transglutaminase Ab IgG Today R10.9 - Unspecified abdominal pain Medications: New pantoprazole take one tablet half an hour before breakfast 40 mg PO DAILY 30 tabs 3RF K21.9 - Gastro-esophageal reflux disease without esophagitis Coding Level of Care Code New Pt Level 4 (70243) Diagnoses Gastroesophageal reflux disease, unspecified whether esophagitis present K21.9 Esophagitis presence: esophagitis presence not specified Postprandial abdominal bloating R14.0 Pharyngeal dysphagia R13.13 Dysphagia type: pharyngeal phase Irritable bowel syndrome without diarrhea K58.9 Irritable bowel syndrome type: without diarrhea Epigastric pain R10.13 Abdominal location: epigastric Epigastric pain R10.13 Time Spent (min) 50 Comment 35 minutes spent with patient and additional 15 minutes spent reviewing his records
[2025-05-05 13:34] VITALS: BP 134/78; PULSE 94; O2SAT 95; BMI 35.0
--- OUTSIDE RECORDS SUMMARY | 2025-05-05 14:06 | XMS_ITS | Encounter Summary ---
Author Organization [employer] Address [address] [place] [address] [address] [place] [address] Care Team Providers Care Venetian Blind Installer Name Role Phone Stefan Reece MD Primary Care Provide r Reason for Visit * Reason Onset Date Comments June Recall 05/01/2025 Encounter Details Date Type Department Care Team ([facility] st Contact Info) Description 05/01/2025 Telephone [facility] [address] [place], [place] [phone] Stefan Reece MD [address] [place] [address] June Recall Social History Tobacco Use Types Packs/Day Years Used Date Smoking Tobacco: Never Smokeless Tobacco: Never Sex and Gender Information Value Date Recorded Sex Assigned at Male 09/03/2022 10:37 AM EDT Legal Sex Male 10:37 AM EDT Gender Identity Male 09/03/2022 10:37 AM EDT Sexual Orientation Straight 09/03/2022 10 :37 AM EDT documented as of this encounter Miscellaneous Notes * Telephone Encounter - Giselle Herrera MA - 05/01/2025 9:45 AM EDT Telephone call to patient to schedule a recall appointment. No answer, Left voicemail to return call to clinic.. Recall letter sent. Visit type: Office Visit Appointment notes: Epigastric Pain Month due: June With: Win Please schedule appointment above if patient returns call documented in this encounter Plan of Treatment Not on file documented as of this encounter Visit Diagnoses Not on filedocumented in this encounter Care Teams Venetian Blind Installer Relationship Specialty Start Date End Date Stefan Reece MD [address] [place] [phone] PCP - General Internal Medicine 02/09/21 documented as of this encounter
--- OUTSIDE RECORDS SUMMARY | 2025-05-05 14:06 | XMS_ITS | Clinical Summary ---
Author Organization [facility] Address [address] [place] [address] Phone Care Team Providers Care Drilling And Production Superintendent Name Role Phone Physician, Pcp Unknown Primary Care Provider Yasmin vailable Allergies No known active allergies Social History Tobacco Use Types Packs/Day Years [...] 63 01/18/2025 10:23 AM EDT Temperature 37.5 C (99.5 F) 01/18/2025 10:23 AM EDT Respiratory Rate 20 01/18/2025 10:23 AM EDT Oxygen Saturation 96% 01/18/2025 10:23 AM EDT Inhaled Oxygen Concentration - - Weight 102 kg (225 lb) 01/18/2025 7:30 AM EDT Height 175.3 cm (5' 9 ) 01/18/2025 7:30 AM EDT Body Mass Index 33.23 01/18/2025 7:30 AM EDT Plan of Treatment Health Maintenance Due Date Last Done Comments Hepatitis B Vaccines (1 of - + 3-dose series) 2002 COVID-19 Vaccine (2023-2 5 season) 2024 03/24/2021, 03/03/2021 Cholesterol Screening (Lipid Panel) 01/18/2025 Depression Screening 01/18/2025 Hepatitis C Screening 01/18/2025 Medicare Annual Wellness Visit 01/18/2025 Social Influencers of Health Screening 01/18/2025 Influenza Vaccine (#1) 2025 DTaP,Tdap,and Td Vaccines (2 - Td or Tdap) 01/22/2035 01/22/2025 HIV Screening Completed 01/22/2025 HIB Vaccines Aged Out No longer eligi [...] on patient's age to complete this topic [place] - [place] [facility] MEDICARE ADVANTAGE Care Teams Drilling And Production Superintendent Relationship Specialty Start Date End Date Physician, Pcp Unknown PCP - General 01/18/25
== END 2025-05-05 14:53 | disposition home or self-care (01) ==
LOC: HO.HGI 13:28
PROVIDERS: PCP Internal Medicine; Visit Provider Nurse Practitioner Family
DX: K21.9 Gastro-esophageal reflux disease without esophagitis (principal); R14.0 Abdominal distension (gaseous); R13.13 Dysphagia, pharyngeal phase; K58.9 Irritable bowel syndrome, unspecified; R10.13 Epigastric pain
CPT/HCPCS: 99204

== ENCOUNTER 2025-05-05 13:28 | Outpatient (REF) | payer OTHER, SELFPAY ==
--- OUTSIDE RECORDS SUMMARY | 2025-05-06 16:55 | XMS_ITS | Clinical Summary ---
Author Organization [facility] Address [address] [place] [address] Phone Care Team Providers Care Streetcar Conductor Name Role Phone Physician, Pcp Unknown Primary [...] complete this topic Insurance [place] - [place] [facility] [place] [address] Care Teams Streetcar Conductor Relationship Specialty Start Date End Date Physician, Pcp Unknown PCP - General 01/18/25
== END 2025-05-05 13:29 | disposition home or self-care (01) ==
LOC: HO.LNP 13:28
PROVIDERS: PCP Internal Medicine; Visit Provider Nurse Practitioner Family
DX: K21.9 Gastro-esophageal reflux disease without esophagitis (principal); K58.9 Irritable bowel syndrome, unspecified; R13.13 Dysphagia, pharyngeal phase; R14.0 Abdominal distension (gaseous); R10.13 Epigastric pain
CPT/HCPCS: 83013; 99202

== ENCOUNTER 2025-05-10 10:32 | Outpatient (REF) | payer OTHER, SELFPAY ==
--- OUTSIDE RECORDS SUMMARY | 2025-05-10 11:22 | XMS_ITS | Clinical Summary ---
Author Organization [employer] Address [address] [facility] [address] [place] [address] Care Team Providers Care Soil Scientist Name Role Phone Stefan Reece MD Primary Care Provide r Allergies No known active allergies Medications famotidine (Pepcid) 40 MG tablet Take 1 tablet (40 mg) by mouth in the evening. 30 tablet 11 11/06/19 24 Active Blood Pressure kitIndications:E levated blood pressure reading without diagnosis of hypertension 1 each 2 times daily. 1 kit 01/23/20 25 026 Active hydrocortisone (Proctosol HC) 2.5 % rectal creamIndications :BRBPR (bright red blood per rectum) Insert into the rectum 2 times daily. 28 g 1 04/01/20 25 Active omeprazole (PriLOSEC) [address] capsuleIndicatio ns:Epigastric pain TAKE 1 CAPSULE (20 MG) BY MOUTH BEFORE BREAKFAST DO NOT CRUSH OR CHEW 90 capsule 04/20/20 25 Active tamsulosin (Flomax) 0.4 MG 24 hr capsuleIndicatio ns:Nocturia TAKE 1 CAPSULE (0.4 MG) BY MOUTH ONCE PER DAY. 90 capsule 04/20/20 25 Active tamsulosin (Flomax) 0.4 MG 24 hr capsuleIndicatio ns:Nocturia Take 1 capsule (0.4 mg) by mouth Once per day. 90 capsule 01/23/20 25 025 Discontinued omeprazole (PriLOSEC) [address] capsuleIndicatio ns:Epigastric pain Take 1 capsule (20 mg) by mouth before breakfast. Do not crush or chew. 90 capsule 03/ 025 Discontinued Active Problems Problem Noted Date Diagnosed Date BRBPR (bright red blood per rectum) 04/01/2025 Assessment & Plan (04/01/2025 3:00 PM EDT): Pt with c/o new onset of BRBPR x 1 month On exam. No evidence of external hemorrhoids Etiology ? Likely internal hemorrhoids but other etiologies will need to be ruled out Plan: Avoid constipation, increase fluids, increase dietary fiber, sit baths Proctosol daily PRN Pt already scheduled with GI 05/05/25 1:30pm Functional memory problem 04/01/2025 Assessment & Plan (04/01/2025 3:40 PM EDT): Patient reports a couple of instances in which he feels he cannot remember things, or has difficulty learning new material. Reports he has never had that problem before Neuro exam today is non focal Plan: Basic blood work, B12, folate, RPR CT brain F/u, might need Neuro eval if symptoms persist Nocturia 01/22/2025 Assessment & Plan (04/01/2025 2:43 PM EDT): Under the care of Urology. Last seen 03/23/2025 Epigastric pain 01/22/2025 Assessment & Plan (04/01/2025 2:43 PM EDT): Pt is here after a long hiatus Recently seen here for follow-up for abdominal pain after he was evaluated at [facility] ER. Workup there, included a CT abdomen, that was unremarkable. Pt reported symptoms have been present for many years. He reports epigastric pain and urinary symptoms as well as lower pelvic pain and urinary frequency and nocturia up to 15 times per night. In November 2023 did have H. pylori and FOBT which were normal. AST 40 and ALT 79 at that time. Amylase was mildly elevated at 104. 01/18/2025 [facility] ED on CT there was some suggestion of fatty infiltration in the right hepatic lobe but otherwise was unremarkable. BG mildly was elevated 112 Normal CBC, lipase, UA (trace ketones), LFTs Pt was referred to GI for EGD appointment already scheduled for 05/2025 Former smoker 01/22/2025 Overview (01/22/2025): quit approx 2014 Encounters Date Type Department Care Team Description 05/01/[address] [phone] Stefan Reece MD June04/20/[address] [phone] Lauren Bullock ANP Epigastric pain; Nocturia 04/07/2025 Telephone [facility] [address] [place] [address] [phone] HEAD ORDER 04/01/2025 2:30 PM EDT Office Visit [address] [address] Stefan Reece MD Epigastric pain (Primary Dx); Nocturia; BRBPR (bright red blood per rectum); Functional memory problem 04/01/2025 Travel 04/01/[address] [address] Stefan Reece MD CHART PREP 03/24/2025 Patient Outreach [facility] [address], [place] [phone] Stefan Reece MD Pre-visit Planning (OKOH unable to reach, number disconnected) 03/23/2025 Orders Only GENERIC EXTERNAL DATA DEPARTMENT Provider, Generic External Data 02/15/[address] [address] Lauren Bullock ANP Results from Last 3 Months Immunizations Immunization Administration [...] Sign Reading Time Taken Comments Blood Pressure 120/80 04/01/2025 2:33 PM EDT Pulse 82 04/01/2025 3:00 PM EDT Temperature 36.2 C (97.1 F) 04/01/2025 2:33 PM EDT Respiratory Rate 18 04/01/2025 2:33 PM EDT Oxygen Saturation 98% 04/01/2025 2:33 PM EDT Inhaled Oxygen Concentration - - Weight 105 kg (230 lb 9.6 oz) 04/01/2025 2:33 PM EDT Height 172.7 cm (5' 8 ) 04/01/2025 2:33 PM EDT Body Mass Index 35.06 04/01/2025 2:33 PM EDT Plan of Treatment Health Maintenance Due Date Last Done Comments Depression Screening 1985 Lipid Panel 1985 SDOH Screening 1985 Disability Screening 1985 Alcohol/Substance Use Screening 1995 Family Planning (PISQ) 1998 HPV Vaccines (1 - Male 3-dos e series) 1998 Hepatitis B Vaccines (1 of 3 - 19+ 3-dose series) 2002 COVID-19 Vaccine ( - 2023-2 5 season) 2024 03/24/2021, 03/03/2021 Influenza Vaccine (#1) 2025 Diabetes: Hemoglobin A1C 01/22/2026 01/22/2025 Tobacco Screening [...] Years) and At-Risk Patients (6 to 49) Years Aged Out No longer eligible b ased on patient's age to complete this topic RSV under 20 months Aged Out No longe r eligible based on patient's age to complete this topic Rotavirus Vaccines Aged Out No longer eligible based on patient's age to complete this topic Procedures Procedure Name Priority Date/Time Associated Diagnosis Comments HELICOBACTER PYLORI, UREA BREATH TEST Routine 05/05/2025 2:30 PM EDT CYTOPATH-CELL ENHANCED Routine 03/23/2025 4:12 PM EDT US BLADDER Routine 02/12/2025 3:39 PM EDT HEPATITIS PANEL, GENERAL Routine 01/22/2025 12:30 PM EDT Healthcare maintenance HIV 1/2 ANTIGEN/ANTIBODY, FOURTH GENERATION W/RFL Routine 01/22/2025 12:30 PM EDT Healthcare maintenance HEMOGLOBIN A1C Routine 01/22/2025 12:30 PM EDT Urinary frequency from Last 3 Months or Most Recently Relevant to Health Maintenance Results * Helicobacter pylori, Urea Breath Test (05/05/2025 2:30 PM EDT) H. pylori Breath Test Negative Negative [facility] Comment:Antimicrobials, prot on pump inhibitors and bismuthpreparations are known to suppress H. pylori. Ingestingthese medications within two weeks prior to performing thebreath test may produce negative test results. A positiveresult is still clinically valid. 05/05/2025 2:30 PM EDT 05/06/2025 4:55 PM EDT us Generic External Data Provider LAB BLOOD ORDERAB LES Final Result [facility] [address] [place] [address] [phone] * Cytopath-cell enhanced (03/23/2025 4:12 PM EDT) 03/23/2025 4:12 PM EDT 03/24/2025 10:20 AM EDT Narrative [facility] - 03/24/2025 3:04 PM EDT ----- ------- Name: Ricardo Isaacs Age/Sex: 40/M : 1985 Unit#: [id number] Attend Dr: Amalia Reyez [facility] Re03/23/25 Status: DEP REF Location: .LAB Disch: ----- ------- SPEC : [id number] RECD: 03/24/25-1020 STATUS: JANICE MANUEL NUM: [id number] TARIQ: 03/23/25-[address] [facility] [address]: Amalia Reyez [facility]- ENTERED: 03/24/25-1050 SP TYPE: Cytology OT DR: Stefan Bahena MD ORDERED: Cyto-enhanced Diagnosis Urine: Negative for high-grade urothelial carcinoma. See comment. COMMENT: Scant cellularity. Few lymphocytes and rare squamous cells only. Clinical History Cystitis, unspecified without hematuria Material Received Urine Gross Description Received is 50 cc of cloudy yellow fluid from which a ThinPrep slide is prepared. Copies To: Stefan Bahena MD [facility] [address], [place] [phone] Amalia Reyez [facility] [address] [place] [address] [address]. [address] [place] [address] [email or web address] ----- ------- Signed (signature on file) Juan Abernathy MD 03/24/25 1504 ----- ------- END OF REPORT us Generic External Data Provider LAB CYTOLOGY DANYA SABILLON Final Result [facility] [address] [place] [address] [phone] * US BLADDER (02/12/2025 3:39 PM EDT) Anatomical Region Laterality Modality Abdomen Ultrasound 02/12/2025 3:39 PM EDT Narrative 02/15/2025 7:11 AM EDT [address] [address] Ultrasound Report Signed Patient: Ricardo Isaacs MR#: [id number] 6 : 1985 Acct:[id number] Age/Sex: 39 / M ADM Date: 02/12/25 Loc: HO.US Attending Dr: Laurne Bullock NP Ordering Physician: LAUREN BULLOCK NP Date of Service: 02/12/25 Procedure(s): US bladder Accession Number(s): [id number] cc: Stefan Bahena MD; LAUREN BULLOCK NP [...] Stephan Noriega MD 02/15/2025 07:08 AM EDT RP Dictated By: Stephan Noriega MD Signed By: <Electronically signed by Stephan Noriega MD in OV> 02/15/25 0708 DD/ 1539 TD/TT: 02/12/25 1545 Vehicle Painter: Procedure Note Donotuseinterpreter, Image - 02/15/[address] [address] Ultrasound Report Signed Patient: Ricardo IsaacsMR#: [id number] 6 : 1985Acct:[id number] Age/Sex: 39 / MADM Date: 02/12/25 Loc: .US Attending Dr: Lauren Bullock NP Ordering Physician: LAUREN BULLOCK NP Date of Service: 02/12/25 Procedure(s): US bladder Accession Number(s): [id number] cc: Stefan Bahena MD; LAUREN BULLOCK NP [...] Stephan Noriega MD 02/15/2025 07:08 AM EDT RP Dictated By: Stephan Noriega MD Signed By: <Electronically signed by Stephan Noriega MD in OV> 02/15/25 0708 DD/ 1539 TD/TT: 02/12/25 1545 Vehicle Painter: us Lauren Bullock ANP IMG US PROCEDURES Edited Result - Final * Hepatitis A,B,C Profile (01/22/2025 12:30 PM EDT) Hepatitis A IgM Nonreactive Nonreactive [facility] Comment:IgM antibodies to GALLAGHER V not detected; does not exclude earlyacute or recovered HAV infection. ~Hepatitis B Surface Antibody NONREACTIVE Nonreactive [facility] Comment:Nonreactive: < 8.00 mIU/mL Hepatitis B Core Antibody Nonreactive Nonreactive [facility] Hepatitis C Antibody Nonreactive Nonreactive [facility] Comment:Antibodies to HCV no t detected; does not exclude early acuteHCV infection. Hepatitis B Surface Ag Negative Negative [facility] Blood Venous blood specimen / Unknown 01/22/2025 12:30 PM EDT 01/22/2025 1:13 PM EDT us Lauren Bullock ANP LAB BLOOD ORDERABLES Final Resul t [facility] [address] [place] [address] [phone] * HIV-1/2 Antigen and Antibodies, Fourth Generation, with Reflexes (01/22/2025 12:30 PM EDT) HIV AB/AG Nonreactive Nonreactive [facility] Comment:HIV-1 p24 Ag and/or HIV-1/HIV-2 Ab not detected.A test result that is nonreactive does not exclude thepossibility of exposure to or infection with HIV-1 and/orHIV-2. Nonreactive results in this assay for individualswith prior exposure to HIV-1 and/or HIV-2 may be due toantigen and antibody levels that are below the limit ofdetection of this assay.The Pawzii HIV Ag/Ab Combo assay result andsupplemental assay results should be interpreted inconjunction with the patient's clinical presentation,history and other laboratory results. If the results areinconsistent with clinical evidence, additional testing issuggested to confirm the result. Blood Venous blood specimen / Unknown 01/22/2025 12:30 PM EDT 01/22/2025 1:13 PM EDT [facility] LAB BLOOD ORDERABLES Final Resul t Performing Organization Address [facility] Co de Phone Number [facility] [address] [place] [address] [phone] * Hemoglobin A1c (01/22/2025 12:30 PM EDT) Hemoglobin A1c 5.8 <6.0 % [facility] Comment:Hemoglobin A1C Refer ence Range Adults: 4.8 - 6.0 % Non diabetic: < 6.0 % Goal: < 7.0 %Additional Action Suggested: > 8.0 %Note: Hemoglobin A1c results are invalid for patients with abnormal amounts of HbF. Blood transfusions may impact the HbA1c concentration in the patient sample. Estimated Average Glucose 120 mg/dL [facility] Comment:eAG = Estimated ave rage glucose which is %A1C expressed asaverage glucose, using the formula of the D1R-MzvmqnwEzcvfab Glucose study (ADAG), Diabetes Care, Vol.31,#8,2007 Blood Venous blood specimen / Unknown 01/22/2025 12:30 PM EDT 01/22/2025 1:13 PM EDT [facility] LAB BLOOD ORDERABLES Final Resul t [facility] [address] [place] [phone] [phone] from Last 3 Months or Most Recently Relevant to Health Maintenance Insurance [address] [address] Care Teams Soil Scientist Relationship Specialty Start Date End Date Stefan Reece MD [address] [place] [phone] PCP - General Internal Medicine 02/09/21
--- OUTSIDE RECORDS SUMMARY | 2025-05-10 11:22 | XMS_ITS | Clinical Summary ---
Author Organization [facility] Address [address] [place] [address] Phone Care Team Providers Care Lag Screwer Name Role Phone Physician, Pcp Unknown Primary [...] complete this topic Insurance [place] - [place] [facility] MEDICARE ADVANTAGE Care Teams Lag Screwer Relationship Specialty Start Date End Date Physician, Pcp Unknown PCP - General 01/18/25
[2025-05-10 11:26] LABS: MANUAL DIFF FLAG NO
[2025-05-10 11:29] LABS: Hematocrit 46.3 % (42.0-52.0); Hemoglobin 15.9 g/dl (14.0-18.0); Imm Gran Abs Auto 0.03 X10*3/uL (0.00-0.03); Imm Gran Pct Auto 0.3 % (0.0-0.4); Lymphocytes Absolute Auto 3.4 X10*3/uL (1.2-4.9); Mean Corpuscular HGB Conc 34.3 g/dl (31.0-36.0); Mean Corpuscular Hemoglobin 31.5 pg (27.0-33.0); Mean Corpuscular Volume 91.7 fL (80.0-98.0); NRBC Abs Auto 0.000 X10*3/uL (0.0-0.012); NRBC Pct Auto 0.0 /100WBC (0.0-0.2); Platelet Count 353 X10*3/uL (160-400); Red Blood Count 5.05 X10*6/uL (4.60-5.80); White Blood Count 9.7 X10*3/uL (4.8-10.8)
[2025-05-10 13:00] LABS: Folate 11.6 ng/mL (> or = 4.0); Vitamin B12 510 pg/mL (200-900)
[2025-05-10 13:44] LABS: Alanine Aminotransferase 75 U/L (0-40); Albumin Level 4.5 g/dL (3.5-5.0); Alkaline Phosphatase 58 U/L (39-117); Anion Gap 14 (12-20); Aspartate Amino Transferase 47 U/L (5-37); Blood Urea Nitrogen 14 mg/dL (9-16); Calcium 9.5 mg/dL (8.4-10.2); Carbon Dioxide 26 mmol/L (22-29); Chloride 105 mmol/L (96-108); Cholesterol 255 mg/dL (<200); Estimated Glomerular Filt Rate > 60; HDL Cholesterol 47 mg/dL (>40); Lipase 32 U/L (8-78); Potassium 4.5 mmol/L (3.3-5.1); Sodium 140 mmol/L (135-145); Total Protein 7.7 g/dL (6.5-8.0); Triglycerides 139 mg/dL (<150)
[2025-05-11 08:17] LABS: Syphilis Screen Nonreactive (Nonreactive)
[2025-05-11 14:59] LABS: Transglutaminase Ab IgG <1.0 U/mL
== END 2025-05-10 10:33 | disposition home or self-care (01) ==
LOC: HO.HHCL 10:32
PROVIDERS: PCP Internal Medicine; Referring Provider Nurse Practitioner Family; Visit Provider Internal Medicine
DX: R10.13 Epigastric pain (principal); R41.3 Other amnesia
CPT/HCPCS: 36415; 80053; 80061; 82607; 82746; 83690; 84443; 85025; 86364; 86780

== ENCOUNTER 2025-05-29 09:38 | Outpatient (REF) | payer OTHER, SELFPAY ==
--- NOTE | ~2025-05-29 | CT_ITS ---
CLINICAL HISTORY: memory problems CT head without contrast Comparison: None Findings: No acute hemorrhage, acute major vascular distribution infarct, intracranial mass, midline shift or hydrocephalus. No extra-axial fluid collection. Empty sella. Visualized paranasal sinuses and mastoid air cells normal. Orbits unremarkable. The cranium appears intact. Superficial soft tissue is unremarkable. Impression: 1. No acute intracranial finding. 2. Incidental note of empty sella. This document has been electronically signed by: Shaista Rosario MD on 05/31/2025 12:48:11
--- OUTSIDE RECORDS SUMMARY | 2025-05-29 09:41 | XMS_ITS | Clinical Summary ---
Author Organization [employer] Address [address] [facility] [address] [place] [address] Care Team Providers Care Inside Plant Supervisor Name Role Phone Stefan Reece MD Primary Care Provide r Allergies No known active allergies Medications famotidine (Pepcid) 40 MG tablet Take 1 tablet (40 mg) by mouth in the evening. 30 tablet 11 4 Active Blood Pressure kitIndications:El evated blood pressure reading without diagnosis of hypertension 1 each 2 times daily. 1 kit 5 01/23/20 26 Active hydrocortisone (Proctosol HC) 2.5 % rectal creamIndications: BRBPR (bright red blood per rectum) Insert into the rectum 2 times daily. 28 g 1 5 Active omeprazole (PriLOSEC) [address] capsuleIndication s:Epigastric pain TAKE 1 CAPSULE (20 MG) BY MOUTH BEFORE BREAKFAST DO NOT CRUSH OR CHEW 90 capsule 5 Active tamsulosin (Flomax) 0.4 MG 24 hr capsuleIndication s:Nocturia TAKE 1 CAPSULE (0.4 MG) BY MOUTH ONCE PER DAY. 90 capsule 5 Active Active Problems Problem [...] abdominal pain after he was evaluated at [facility] ER. Workup there, included a CT abdomen, [...] Amylase was mildly elevated at 104. 01/18/2025 [facility] ED on CT there was some suggestion of fatty infiltration in the right hepatic lobe but otherwise was unremarkable. BG mildly was elevated 112 Normal CBC, lipase, UA (trace ketones), LFTs Pt was referred to GI for EGD appointment already scheduled for 05/2025 Former smoker 01/22/2025 Overview (01/22/2025): quit approx 2014 Encounters Date Type Department Care Team Description 05/11/2025 Results Follow-Up [facility] [address] [place] [address] Stefan Reece MD Comprehensive Metabolic Panel, Lipid Panel, Standard, TSH with Reflex to Free T4, Additional followed-up results: 3 05/10/[address] [address] Stefan Reece MD June05/01/[address] [address] Stefan Reece MD June04/20/[address] [phone] Wendy Tijerina ANP Epigastric pain; Nocturia 04/07/2025 Telephone [facility] [address] [place] [address] HEAD ORDER 04/01/2025 2:30 PM EDT Office Visit [address] [address] Stefan Reece MD Epigastric pain (Primary Dx); Nocturia; BRBPR (bright red blood per rectum); Functional memory problem 04/01/2025 Travel 04/01/[address] [address] Stefan Reece MD CHART PREP 03/24/2025 Patient Outreach [facility] [address] [place], [place] [phone] Stefan Reece MD Pre-visit Planning (SDOH unable to reach, number disconnected) 03/23/2025 Orders Only GENERIC EXTERNAL DATA DEPARTMENT Provider, Generic External Data from Last 3 Months Immunizations Immunization Administration [...] Date Last Done Comments Depression Screening 1985 SDOH Screening 1985 Disability Screening 1985 Alcohol/Substance Use Screening 1995 Family Planning (PISQ) 1998 HPV Vaccines (1 - Male 3-dos e series) 1998 Hepatitis B Vaccines (1 of 3 - 19+ 3-dose series) 2002 COVID-19 Vaccine (3 - 2023-2 5 season) 2024 03/24/2021, 03/03/2021 Influenza Vaccine (#1) 2025 Diabetes: Hemoglobin A1C 01/22/2026 01/22/2025 Tobacco Screening 01/22/2026 01/22/2025 Lipid Panel 05/10/2030 05/10/2025 Zoster Vaccines (1 of 2) 2033 DTaP/Tdap/Td [...] Procedure Name Priority Date/Time Associated Diagnosis Comments TISSUE TRANSGLUTAMINASE AB, IGG Routine 05/10/2025 10:41 AM EDT LIPASE Routine 05/10/2025 10:41 AM EDT SYPHILIS SCREEN Routine 05/10/2025 10:41 AM EDT Functional memory problem VITAMIN B12/FOLATE, SERUM PANEL Routine 05/10/2025 10:41 AM EDT Functional memory problem CBC WITH AUTO DIFFERENTIAL Routine 05/10/2025 10:41 AM EDT Epigastric pain TSH W/REFLEX TO FT4 Routine 05/10/2025 1 0:41 AM EDT Epigastric pain LIPID PANEL, STANDARD Routine 05/10/2025 10:41 AM EDT Epigastric pain COMPREHENSIVE METABOLIC PANEL Routine 05/10/2025 10:41 AM EDT Epigastric pain HELICOBACTER PYLORI, UREA BREATH TEST Routine 05/05/2025 2:30 PM EDT CYTOPATH-CELL ENHANCED Routine 5 4:12 PM EDT HEPATITIS PANEL, GENERAL Routine 025 12:30 PM EDT Healthcare maintenance HIV 1/2 ANTIGEN/ANTIBODY, FOURTH GENERATION W/RFL Routine 01/22/2025 12:30 PM EDT Healthcare maintenance HEMOGLOBIN A1C Routine 01/22/2025 12:30 PM EDT Urinary frequency from Last 3 Months or Most Recently Relevant to Health Maintenance Results * Syphilis Screen (05/10/2025 10:41 AM EDT) Syphilis Screen Nonreactive Nonreactive [facility] Blood Venous blood specimen / Unknown 05/10/2025 10:41 AM EDT 05/10/2025 11:20 AM EDT Stefan Ray MD LAB BLOOD ORDERABLES Final Result Performing Organization Address [facility]/ZIP Co de Phone Number [facility] [address] [place] [phone] * Vitamin B12/Folate, Serum Panel (05/10/2025 10:41 AM EDT) [facility] Vitamin B12 510 200 - 900 pg/mL [facility] Comment:NORMAL 200-900 PG/ML INDETERMINATE 160-199 PG/ML DEFICIENT < 160 PG/ML Folate 11.6 > or = 4.0 ng/mL [facility] Comment:Reference Values:> o r = 4.0 ng/mL< 4.0 ng/mL suggests folate deficiency Methotrexate, aminopterin and folinic acid(leucovorin) are chemotherapeutic agents whose molecularstructures are similar to folate; therefore, the Architectfolate assay cannot be used for patients using these drugs. Blood Venous blood specimen / Unknown 05/10/2025 10:41 AM EDT 05/10/2025 11:20 AM EDT Stefan Ray MD LAB BLOOD ORDERABLES Final Result Performing Organization Address [facility] Co de Phone Number [facility] [address] [place] [phone] * TSH with Reflex to Free T4 (05/10/2025 10:41 AM EDT) TSH reflex Free T4 1.32 0.32 - 4.0 uIU/mL [facility] Blood Venous blood specimen / Unknown 05/10/2025 10:41 AM EDT 05/10/2025 11:25 AM EDT us Stefan Ray MD LAB BLOOD ORDERABLES Final Result Performing Organization Address [facility] de Phone Number [facility] [address] [place] [phone] * Tissue Transglutaminase (tTG) Antibody (IgG) (05/10/2025 10:41 AM EDT) Tissue Transglutaminase Antibody IgG <1.0 U/mL [facility] Comment:Value Interpretation ----- <15.0 Antibody not detected> or = 15.0 Antibody detectedTHIS TEST WAS PERFORMED AT:[employer] [place] [id number] BENNETT MD 05/10/2025 10:4 1 AM EDT 05/10/2025 11:25 AM EDT Generic External Data Provider LAB BLOOD ORDERAB LES Final Result Performing Organization Address [facility] de Phone Number [facility] [address] [place] [phone] * CBC auto differential (05/10/2025 10:41 AM EDT) White Blood Count 9.7 4.8 - 10.8 X10*3/uL [facility] Red Blood Count 5.05 4.60 - 5.80 X10*6/uL [facility] Hemoglobin 15.9 14.0 - 18.0 g/dl [facility] Hematocrit 46.3 42.0 - 52.0 % [facility] Mean Corpuscular Volume 91.7 80.0 - 98.0 fL [facility] Mean Corpuscular Hemoglobin 31.5 27.0 - 33.0 pg [facility] Mean Corpuscular HGB Conc 34.3 31.0 - 36.0 g/dl [facility] Red Cell Distribution Width 12.3 11.0 - 16.0 % [facility] Platelet Count 353 160 - 400 X10*3/uL [facility] Mean Platelet Volume 9.4 9.4 - 12.4 fL [facility] Neutrophils Percent Auto 57.0 45 - 73 % [facility] Imm Gran Pct Auto 0.3 0.0 - 0.4 % [facility] Lymphocytes Percent Auto 34.4 20 - 40 % [facility] Monocytes Percent Auto 6.2 2 - 11 % [facility] Eosinophils Percent Auto 1.7 0 - 4 % [facility] Basophils Percent Auto 0.4 0 - 2 % [facility] NRBC Pct Auto 0.0 0.0 - 0.2 /100WBC [facility] Neutrophils Absolute Auto 5.5 2.0 - 8.3 x10*3/uL [facility] Imm Gran Abs Auto 0.03 0.00 - 0.03 X10*3/uL [facility] Lymphocytes Absolute Auto 3.4 1.2 - 4.9 X10*3/uL [facility] Monocytes Absolute Auto 0.6 0.1 - 1.2 X10*3/uL [facility] Eosinophils Absolute Auto 0.2 0.0 - 0.4 X10*3/uL [facility] Basophils Absolute Auto 0.0 0.0 - 0.2 X10*3/uL [facility] NRBC Abs Auto 0.000 0.0 - 0.012 X10*3/uL [facility] Blood Venous blood specimen / Unknown 05/10/2025 10:41 AM EDT 05/10/2025 11:20 AM EDT us Stefan Ray MD LAB BLOOD ORDERABLES Final Result [facility] [address] [place] [phone] * Lipase (05/10/2025 10:41 AM EDT) Lipase 32 8 - 78 U/L [facility] 05/10/2025 10:4 1 AM EDT 05/10/2025 11:25 AM EDT us Generic External Data Provider LAB BLOOD ORDERAB LES Final Result Performing Organization Address [facility] Co de Phone Number [facility] [address] [place] [phone] * (ABNORMAL) Lipid Panel, Standard (05/10/2025 10:41 AM EDT) Triglycerides 139 <150 mg/dL [facility] Comment:Desirable Triglyceri de: less than 150 mg/dLBorderline High Triglyceride 150-199 mg/dLHigh Triglyceride: 200-499 mg/dLVery High Triglyceride: greater than or equal to 5OO mg/dL Cholesterol 255(H) <200 mg/dL [facility] Comment:Desirable Cholestero l: less than 200 mg/dLBorderline High Cholesterol: 200-239 mg/dLHigh Cholesterol: greater than 239 mg/dL LDL Cholesterol Calculated 181(H) <100 mg/dL [facility] Comment:Desirable LDL: less than 100 mg/dLNear Optimal/Above Optimal LDL: 110- 129 mg/dLBorderline High LDL: 130-159 mg/dLHigh LDL: 160-189 mg/dLVery High LDL: greater than or equal to 190 mg/dL HDL Cholesterol 47 >40 mg/dL [facility] Comment:Desirable HDL: great er than 40 mg/dL Note: This HDL assay may give artificially low results in patients with liver disease. Blood Venous blood specimen / Unknown 05/10/2025 10:41 AM EDT 05/10/2025 11:25 AM EDT us Stefan Ray MD LAB BLOOD ORDERABLES Final Result Performing Organization Address City/[facility]/ZIP Co de Phone Number [facility] [address] [place] [phone] * (ABNORMAL) Comprehensive Metabolic Panel (05/10/2025 10:41 AM EDT) Sodium 140 135 - 145 mmol/L [facility] Potassium 4.5 3.3 - 5.1 mmol/L [facility] Chloride 105 96 - 108 mmol/L [facility] Carbon Dioxide 26 22 - 29 mmol/L [facility] Anion Gap 14 12 - 20 [facility] Urea Nitrogen (BUN) 14 9 - 16 mg/dL [facility] Creatinine, Serum 0.93 0.5 - 1.4 mg/dL [facility] Estimated Glomerular Filt Rate >60 [facility] Comment:Chronic Kidney Disea se: Estimated GFR < 60 mL/min/1.88d5Tuxjuw Kidney Disease: Estimated GFR < 15 mL/min/1.73m2 Glucose 114 60 - 115 mg/dL [facility] Calcium 9.5 8.4 - 10.2 mg/dL [facility] Bilirubin, Total 0.5 0.0 - 1.0 mg/dL [facility] Aspartate Amino Transferase 47(H) 5 - 37 U/L [facility] Alanine Aminotransferase 75(H) 0 - 40 U/L [facility] Total Protein 7.7 6.5 - 8.0 g/dL [facility] Albumin Level 4.5 3.5 - 5.0 g/dL [facility] Alkaline Phosphatase 58 39 - 117 U/L [facility] Blood Venous blood specimen / Unknown 05/10/2025 10:41 AM EDT 05/10/2025 11:25 AM EDT us Stefan Ray MD LAB BLOOD ORDERABLES Final Result [facility] [address] [place] [phone] * Helicobacter pylori, Urea Breath Test (05/05/2025 2:30 PM EDT) H. pylori Breath Test Negative Negative [facility] Comment:Antimicrobials, prot on pump inhibitors and bismuthpreparations are known to suppress H. pylori. Ingestingthese medications within two weeks prior to performing thebreath test may produce negative test results. A positiveresult is still clinically valid. 05/05/2025 2:30 PM EDT 05/06/2025 4:55 PM EDT us Generic External Data Provider LAB BODY FLUIDS A ND STOOLS ORDERABLES Final Result [facility] [address] [place] [phone] * Cytopath-cell enhanced (03/23/2025 4:12 PM EDT) 03/23/2025 4:12 PM EDT 03/24/2025 10:20 AM EDT Narrative [facility] - 03/24/2025 3:04 PM EDT ----- ------- Name: FernyRicardo Age/Sex: 40/M : 1985 Unit#: [id number] Attend Dr: Amalia Reyez [facility] Re03/23/25 Status: [facility] REF Location: .LAB Disch: ----- ------- SPEC : [id number] RECD: 03/24/25-1020 STATUS: JANICE MANUEL NUM: [id number] TARIQ: 03/23/25-1612 [facility] DR: Amalia Reyez [facility] ENTERED: 03/24/25-1050 SP TYPE: Cytology OT DR: Stefan Bahena MD ORDERED: Cyto-enhanced Diagnosis Urine: Negative for high-grade urothelial carcinoma. See comment. COMMENT: Scant cellularity. Few lymphocytes and rare squamous cells only. Clinical History Cystitis, unspecified without hematuria Material Received Urine Gross Description Received is 50 cc of cloudy yellow fluid from which a ThinPrep slide is prepared. Copies To: Stefan Bahena MD [address] [address] Amalia Reyez [facility] [address] [place] [address] [address] [place] [address] [email or web address] ----- ------- Signed (signature on file) Juan Abernathy MD 03/24/25 1504 ----- ------- END OF REPORT us Generic External Data Provider LAB CYTOLOGY DANYA SABILLON Final Result [facility] [address] [place] [phone] [phone] * Hepatitis A,B,C Profile (01/22/2025 12:30 PM EDT) Hepatitis A IgM Nonreactive Nonreactive [facility] Comment:IgM antibodies to GALLAGHER V not detected; does not exclude earlyacute or recovered HAV infection. ~Hepatitis B Surface Antibody NONREACTIVE Nonreactive [facility] Comment:Nonreactive: < 8.00 mIU/mL Hepatitis B Core Antibody Nonreactive Nonreactive [facility] Hepatitis C Antibody Nonreactive Nonreactive [facility] Comment:Antibodies to HCV no t detected; does not exclude early acuteHCV infection. Hepatitis B Surface Ag Negative Negative [facility] Blood Venous blood specimen / Unknown 01/22/2025 12:30 PM EDT 01/22/2025 1:13 PM EDT [facility] LAB BLOOD ORDERABLES Final Resul t [facility] [address] [place] [phone] * HIV-1/2 Antigen and Antibodies, Fourth Generation, with Reflexes (01/22/2025 12:30 PM EDT) Pathologist [facility] HIV AB/AG Nonreactive Nonreactive [facility] Comment:HIV-1 p24 Ag and/or HIV-1/HIV-2 Ab not detected.A test result that is nonreactive does not exclude thepossibility of exposure to or infection with HIV-1 and/orHIV-2. Nonreactive results in this assay for individualswith prior exposure to HIV-1 and/or HIV-2 may be due toantigen and antibody levels that are below the limit ofdetection of this assay.The bepretty HIV Ag/Ab Combo assay result andsupplemental assay results should be interpreted inconjunction with the patient's clinical presentation,history and other laboratory results. If the results areinconsistent with clinical evidence, additional testing issuggested to confirm the result. Blood Venous blood specimen / Unknown 01/22/2025 12:30 PM EDT 01/22/2025 1:13 PM EDT Wendy Tijerina ANP LAB BLOOD ORDERABLES Final Resul t Performing Organization Address [facility] Co de Phone Number [facility] [address] [place] [phone] * Hemoglobin A1c (01/22/2025 12:30 PM EDT) Hemoglobin A1c 5.8 <6.0 % [facility] Comment:Hemoglobin A1C Refer ence Range Adults: 4.8 - 6.0 % Non diabetic: < 6.0 % Goal: < 7.0 %Additional Action Suggested: > 8.0 %Note: Hemoglobin A1c results are invalid for patients with abnormal amounts of HbF. Blood transfusions may impact the HbA1c concentration in the patient sample. Estimated Average Glucose 120 mg/dL [facility] Comment:eAG = Estimated ave rage glucose which is %A1C expressed asaverage glucose, using the formula of the K2D-ZoypwbuFgawlnr Glucose study (ADAG), Diabetes Care, Vol.31,#8,Jun. 2007 Blood Venous blood specimen / Unknown 01/22/2025 12:30 PM EDT 01/22/2025 1:13 PM EDT Wendy Tijerina ANP LAB BLOOD ORDERABLES Final Resul t Performing Organization Address [facility]/ZIP Co de Phone Number [facility] [address] [place] [phone] from Last 3 Months or Most Recently Relevant to Health Maintenance Insurance [facility] Care Teams Inside Plant Supervisor Relationship Specialty Start Date End Date Stefan Reece MD [address] [place] [phone] PCP - General Internal Medicine 02/09/21
--- OUTSIDE RECORDS SUMMARY | 2025-05-29 09:41 | XMS_ITS | Clinical Summary ---
Author Organization [facility] Address [address] [place] [address] Phone Care Team Providers Care Men'S Furnishings Salesperson Name Role Phone Physician, Pcp Unknown Primary [...] Vaccine (2023-2 5 season) 2024 03/24/2021, 03/03/2021 Depression Screening 11/04/2024 Cholesterol Screening (Lipid Panel) 01/18/2025 Hepatitis C Screening 01/18/2025 Medicare Annual [...] 5 Years) and At-Risk Patients (6 to 49 Years) Aged Out No longer eligible b ased on patient's age to complete this topic RSV Immunization Patients Under 20 months Aged Out No longer eligible b ased on patient's age to complete this topic Varicella Vaccines Aged Out No longer eligible based on patient's age to complete this topic Insurance MEDICA[place] - [place] [facility] [place] [address] Care Teams Men'S Furnishings Salesperson Relationship Specialty Start Date End Date Physician, Pcp Unknown PCP - General 01/18/25
== END 2025-05-29 09:39 | disposition home or self-care (01) ==
LOC: HO.CT 09:38
PROVIDERS: PCP Internal Medicine; Visit Provider Internal Medicine
DX: R41.3 Other amnesia (principal)
CPT/HCPCS: 70450

== ENCOUNTER → 2025-05-29 09:45 | Outpatient (BNV) | payer OTHER, SELFPAY | PROVIDERS: PCP Internal Medicine; Visit Provider Radiology Diagnostic Radiology | DX: R41.3 Other amnesia (principal) | CPT/HCPCS: 70450 ==

== ENCOUNTER 2025-06-21 07:05 | Outpatient (REF) | payer OTHER, SELFPAY ==
--- NOTE | ~2025-06-21 | FL_ITS ---
EXAMINATION: XR UPPER GI SERIES WITH barium swallow. CLINICAL INFORMATION: Gastroesophageal reflux disease without esophagitis. COMPARISON: None available. TECHNIQUE: Routine upper GI contrast study with barium swallow was performed in upright and lying position. FINDINGS: Following oral administration of thick barium and and effervescent granules there is normal propagation bolus from the oral cavity through the pharynx, esophagus into stomach without obstruction, narrowing or stricture. On placing patient supine and prone lying the course, caliber and peristalsis of the stomach is normal. Mild increased gastric secretions are noted. The mucosal pattern of stomach, duodenal bulb and the sweep is normal. There is mild gastroesophageal reflux without hiatal hernia. FLUOROSCOPY TIME: 1 minute 51 seconds DOSE AREA PRODUCT: 2215 uGy-m2 (microgray-meter squared) FL/FL upper GI w air w Ba Swallow IMPRESSION: Increased gastric secretions likely hyperacidity. Mild gastroesophageal reflux without hiatal hernia. Electronically signed by: Jeffrey Burdick MD 06/21/2025 09:04 AM EDT
--- OUTSIDE RECORDS SUMMARY | 2025-06-21 07:07 | XMS_ITS | Clinical Summary ---
Author Organization [facility] Address [address] [place] [address] Phone Care Team Providers Care Blackjack Dealer Name Role Phone Physician, Pcp Unknown Primary [...] complete this topic Insurance MEDICA[place] - [place] [facility] [place] [address] Care Teams Blackjack Dealer Relationship Specialty Start Date End Date Physician, Pcp Unknown PCP - General 01/18/25
== END 2025-06-21 07:06 | disposition home or self-care (01) ==
LOC: HO.XRAY 07:05
PROVIDERS: PCP Internal Medicine; Visit Provider Nurse Practitioner Family
DX: K21.9 Gastro-esophageal reflux disease without esophagitis (principal)
CPT/HCPCS: 74246

== ENCOUNTER → 2025-06-21 07:07 | Outpatient (BNV) | payer OTHER, SELFPAY | PROVIDERS: PCP Internal Medicine; Visit Provider Radiology Diagnostic Radiology | DX: K21.9 Gastro-esophageal reflux disease without esophagitis (principal) | CPT/HCPCS: 74246 ==

== ENCOUNTER 2025-06-23 10:27 | Outpatient (AMB) | payer OTHER, SELFPAY ==
--- NOTE | 2025-06-23 10:39 | MHC.OFFVIS ---
Intake Visit Reasons: 3M follow up/ PVR Intake Note: Patient is present for 3M/PVR Urology Medication:TERAZOSIN,TADALAFIL Antibiotic Allergy:NONE Blood Thinner:NONE Last PVR:43ML'S Todays PVR:0ML'S Dive Superintendent Required: No Dive Superintendent Services: Dive Superintendent Present Dive Superintendent Name: virginie [phone] Allergies No Known Allergies Allergy (Verified 06/23/25 11:04) Medication List - Last Reconciled 06/23/25 by BOB Taylor pantoprazole 40 mg PO DAILY terazosin 5 mg PO BEDTIME 30 days HPI Comments Details: Ricardo is a Telugu-speaking 40-year-old male patient of Dr. Bahena. He has a past medical history of epigastric pain, pelvic pain, nocturia, urinary frequency, hemorrhoids, constipation, dysphagia, IBS, GERD, and abdominal pain. He presents to the office today for follow-up. Of note, patient was seen approximately 3 months ago as a new patient for ongoing lower urinary tract symptoms he has been experiencing at which time his Flomax was discontinued and he was started on terazosin as well as low-dose Cialis for bladder stability. In discussion with the patient today he reports no improvement in his lower urinary tract symptoms with these medications. He continues to experience bladder discomfort, urinary urgency, feeling of incomplete bladder emptying and nocturia. In office urinalysis results reviewed with the patient today. Negative leukocytes negative nitrates negative microscopic hematuria. We did discussed at length potential causes of lower urinary tract symptoms patient is experiencing as well as further treatment options and risks and benefits of these treatment options. He discusses having underwent a cystoscopy in the past when he was incarcerated and being told his bladder was inflamed. We did discuss trial of low-dose trimethoprim as well as other OAB medications versus alpha blockers. Previous workup has included a bladder ultrasound 02/26 noting pre void bladder volume is approximately 400 mL. Postvoid bladder volume is approximately 30 mL. The urinary bladder wall is mildly thickened measuring up to 6 mm in thickness. No masses identified. The prostate measures approximately 14 mL. PSA 01/26 0.3. BITA offered however deferred. We discussed bladder triggers and irritants. We discussed the importance of adequate hydration relation to lower urinary tract symptoms and pH of 6.0 on urinalysis today. He denies incontinence, hematuria, dysuria, foul smelling urine, changes to urinary stream, flank pain, fever, and or chills. He discusses his frustration regarding these lower urinary tract symptoms as they have been present for many years. He also discusses his reluctancy in taking medications He otherwise offers no other issues or concerns at this time. FORMERLY [facility], [facility] Medical History Epigastric pain Elevated blood pressure reading without diagnosis of hypertension Pelvic pain Nocturia Urinary frequency Hemorrhoids Heart burn Constipation Dysphagia IBS (irritable bowel syndrome) GERD (gastroesophageal reflux disease) H/O urinary frequency Hematochezia Abdominal pain Family History Father Esophageal cancer Review of Systems Const All systems reviewed & are unremarkable except as noted in HPI and below Physical Exam Const General: cooperative, healthy appearing, comfortable, no acute distress, well developed, alert and awake Orientation/consciousness: patient oriented x3 Limitations: no limitations HEENT Head: Yes normal to inspection, Yes normocephalic and Yes atraumatic Ears: hearing grossly normal bilaterally Eyes General: appearance normal, both eyes and all related structures Neck Neck: Yes normal visual inspection and Yes trachea midline Chest Chest palpation & inspection: normal inspection of the chest Resp Effort & Inspection: normal respiratory effort and able to speak in complete sentences Cardio Rate: regular rate GI Inspection: Yes normal to inspection General: Yes no CVA tenderness Back/Spine/Pelvis Back: no CVA tenderness Skin General skin exam: no rashes or lesions noted Neuro General: patient oriented x3 Extrem General: Yes normal to inspection Psych Appearance: grossly normal and well kempt Mental Status: mental status grossly normal Speech and movement: Normal speech and movement present and Clear speech present Affect: normal affect Attitude: cooperative Thought process: Normal thought process present Thought content: Normal thought content present Insight: Fair insight present (Psych) Judgement: Fair judgement present (Psych) Office Procedures Post Void Residual Post Residual Void Post Void Residual (PVR): 0 [id number]-Uxlb Void Residual by ultrasound Assessment & Plan Assessment & Plan (1) Urinary frequency: Code(s): R35.0 - Frequency of micturition Category: Medical (2) Nocturia: Code(s): R35.1 - Nocturia Category: Medical (3) Lower urinary tract symptoms: Code(s): R39.9 - Unspecified symptoms and signs involving the genitourinary system Category: Medical (4) Feeling of incomplete bladder emptying: Code(s): R39.14 - Feeling of incomplete bladder emptying Category: Medical (5) Bladder wall thickening: Code(s): N32.89 - Other specified disorders of bladder Category: Medical Plan In office urinalysis results reviewed with the patient today; as noted above. PVR 0 mL. We discussed potential causes of lower urinary tract symptoms patient is experiencing as well as further treatment options and risks and benefits of these treatment options. We did discussed bladder wall thickening He discusses his reluctantcy in taking medications. We did discussed bladder triggers and irritants. We discussed the importance of adequate hydration relation to lower urinary tract symptoms as well as overall health and well-being. Continue terazosin as prescribed. Will schedule for next available in office cystoscopy Follow-up per doctor's orders; or sooner with any issues, concerns, and or questions. Patient Instructions: The patient had an opportunity to ask questions regarding the treatment plan. All questions were answered. Physical exam, labs, and imaging were discussed and reviewed in detail. As well as risks, benefits, and discussion of treatment choices. No major barriers to understanding were identified. The patient expressed understanding and agreement with the above treatment plan. The patient was made aware they should contact our office by phone for worsening of their current condition, the appearance of new symptoms, or with any questions or concerns. Compliance is encouraged with any medications and follow up testing that is ordered. It is a privilege to be allowed the opportunity to participate in? your urological care.? Again, if you have any questions or concerns If you have any questions or concerns please do not hesitate to contact me. The office is [phone]. This note is constructed using voice recognition software. While every effort has been made to ensure accuracy food mixer assembler errors may have been included. Yours sincerely, BOB Taylor Coding Level of Care Code Est Pt Level 3 (93347) Complex EM visit Add On G2211 Diagnoses Urinary frequency R35.0 Nocturia R35.1 Lower urinary tract symptoms R39.9 Feeling of incomplete bladder emptying R39.14 Bladder wall thickening N32.89 CPT Codes Post Residual Void - PVR CPT Code: 08508-Wwri Void Residual by ultrasound ([id number])
--- OUTSIDE RECORDS SUMMARY | 2025-06-23 11:42 | XMS_ITS | Clinical Summary ---
Author Organization [email or web address] Address [address] [facility] [address] [place] [address] Care Team Providers Care Tuber Helper Name Role Phone Stefan Reece MD Primary [...] abdominal pain after he was evaluated at [facility] ER. Workup there, included a CT [...] Amylase was mildly elevated at 104. 01/18/2025 [facility] ED on CT there was some suggestion of fatty infiltration in the right hepatic lobe but otherwise was unremarkable. BG mildly was elevated 112 Normal CBC, lipase, UA (trace ketones), LFTs Pt was referred to GI for EGD appointment already scheduled for 05/2025 Former smoker 01/22/2025 Overview (01/22/2025): quit approx 2014 Encounters Date Type Department Care Team Description 06/21/2025 Results Follow-Up [facility] [address] [place] [address] Jodie Moreira NP FL Upper GI w/air w/Barium Swallow 06/21/2025 Orders Only [facility] External Provider, [facility] 05/11/2025 Results Follow-Up [address] [address] Stefan Reece MD Comprehensive Metabolic Panel, Lipid Panel, Standard, TSH with Reflex to Free T4, Additional followed-up results: 3 05/10/[address] [address] Stefan Reece MD June05/01/[address] [address] Stefan Reece MD June04/20/[address] [phone] Wendy Tijerina ANP Epigastric pain; Nocturia 04/07/2025 Telephone [facility] [address] [place] [address] HEAD ORDER 04/01/2025 2:30 PM EDT Office Visit [address] [address] Stefan Reece MD Epigastric pain (Primary Dx); Nocturia; BRBPR (bright red blood per rectum); Functional memory problem 04/01/2025 Travel 04/01/[address] [address] Stefan Reece MD CHART PREP 03/24/2025 Patient Outreach [facility] [address] [place], [place] [phone] Stefan Reece MD Pre-visit Planning ([facility] unable to reach, number disconnected) 03/23/2025 Orders [...] Procedure Name Priority Date/Time Associated Diagnosis Comments FL UPPER GI W AIR W BARIUM SWALLOW Routine 06/21/2025 7:[address] HEAD WO CONTRAST Routine 05/31/2025 1 2:48 PM EDT Functional memory problem TISSUE TRANSGLUTAMINASE AB, IGG Routine 05/10/2025 10:41 [...] Recently Relevant to Health Maintenance Results * FL Upper GI w/air w/Barium Swallow (06/21/2025 7:55 AM EDT) Anatomical Region Laterality Modality Body Radiographic Imani ging 06/21/2025 7:55 AM EDT Narrative 06/21/2025 9:07 AM EDT [place] [address] Fluoroscopy Report Signed Patient: Carmelo Isaacs MR#: [id number] 6 : 1985 Acct:[id number] Age/Sex: 40 / M ADM Date: 06/21/25 Loc: HO.XRAY Attending Dr: Haritha ROJAS Ordering Physician: Haritha Souza Date of Service: 06/21/25 Procedure(s): FL upper GI w air w Ba Swallow Accession Number(s): [id number] cc: Stefan Bahena MD; Haritha Souza EXAMINATION: XR UPPER GI SERIES WITH barium swallow. CLINICAL INFORMATION: Gastroesophageal reflux disease without esophagitis. COMPARISON: None available. TECHNIQUE: Routine upper GI contrast study with barium swallow was performed in upright and lying position. FINDINGS: Following oral administration of thick barium and and effervescent granules there is normal propagation bolus from the oral cavity through the pharynx, esophagus into stomach without obstruction, narrowing or stricture. On placing patient supine and prone lying the course, caliber and peristalsis of the stomach is normal. Mild increased gastric secretions are noted. The mucosal pattern of stomach, duodenal bulb and the sweep is normal. There is mild gastroesophageal reflux without hiatal hernia. FLUOROSCOPY TIME: 1 minute 51 seconds DOSE AREA PRODUCT: 2215 uGy-m2 (microgray-meter squared) FL/FL upper GI w air w Ba Swallow IMPRESSION: Increased gastric secretions likely hyperacidity. Mild gastroesophageal reflux without hiatal hernia. Electronically signed by: Jeffrey Burdick MD 06/21/2025 09:04 AM EDT RP Dictated By: Jeffrey Burdick MD Signed By: <Electronically signed by Jeffrey Burdick MD in OV> 06/21/25 0904 DD/ 0755 TD/TT: 06/21/25 0814 Food Beverage Manager: LIZABETH Procedure Note Donotuseinterpreter, Image - 06/21/2025 [place] [address] Fluoroscopy Report Signed Patient: Ashtyn Isaacs#: [id number] 6 : 1985Acct:[id number] Age/Sex: 40 / MADM Date: 06/21/25 Loc: HOCLEMENTINA Attending Dr: Haritha Souza [facility] Ordering Physician: Haritha SouzaMAJO Date of Service: 06/21/25 Procedure(s): FL upper GI w air w Ba Swallow Accession Number(s): [id number] cc: Stefan Bahena MD; Haritha Souza [facility] EXAMINATION: XR UPPER GI SERIES WITH barium swallow. CLINICAL INFORMATION: Gastroesophageal reflux disease without esophagitis. COMPARISON: None available. TECHNIQUE: Routine upper GI contrast study with barium swallow was performed in upright and lying position. FINDINGS: Following oral administration of thick barium and and effervescent granules there is normal propagation bolus from the oral cavity through the pharynx, esophagus into stomach without obstruction, narrowing or stricture. On placing patient supine and prone lying the course, caliber and peristalsis of the stomach is normal. Mild increased gastric secretions are noted. The mucosal pattern of stomach, duodenal bulb and the sweep is normal. There is mild gastroesophageal reflux without hiatal hernia. FLUOROSCOPY TIME: 1 minute 51 seconds DOSE AREA PRODUCT: 2215 uGy-m2 (microgray-meter squared) FL/FL upper GI w air w Ba Swallow IMPRESSION: Increased gastric secretions likely hyperacidity. Mild gastroesophageal reflux without hiatal hernia. Electronically signed by: Jeffrey Burdick MD 06/21/2025 09:04 AM EDT RP Dictated By: Jeffrey Burdick MD Signed By: <Electronically signed by Jeffrey Burdick MD in OV> 06/21/25 0904 DD/ 0755 TD/TT: 06/21/25 0814 Food Beverage Manager: LIZABETH [facility] External Provider IMG FLU OROSCOPY PROCEDURES Final Result * CT Head w/o Contrast (05/31/2025 12:48 PM EDT) Anatomical Region Laterality Modality Head, Neck Computed Tomogra phy 05/31/2025 12:4 8 PM EDT Narrative 05/31/2025 12:49 PM EDT [place] [address] CT Scan Report Signed Patient: Carmelo Isaacs MR#: [id number] 6 : 1985 Acct:[id number] Age/Sex: 40 / M ADM Date: 05/29/25 Loc: HO.CT Attending Dr: Stefan Bahena MD Ordering Physician: Stefan Bahena MD Date of Service: 05/29/25 Procedure(s): CT head/brain wo IV con Accession Number(s): [id number] cc: Stefan Bahena MD Report Number: [id number]: Total DLP = 841.00 mGy-cm CLINICAL HISTORY: memory problems CT head without contrast Comparison: None Findings: No acute hemorrhage, acute major vascular distribution infarct, intracranial mass, midline shift or hydrocephalus. No extra-axial fluid collection. Empty sella. Visualized paranasal sinuses and mastoid air cells normal. Orbits unremarkable. The cranium appears intact. Superficial soft tissue is unremarkable. Impression: 1. No acute intracranial finding. 2. Incidental note of empty sella. This document has been electronically signed by: Shaista Rosario MD on 05/31/2025 12:48:11 Dictated By: Shaista Rosario MD Signed By: <Electronically signed by Shaista Rosario MD in OV> 05/31/25 1249 DD/ 1248 TD/TT: 05/31/251247 Food Beverage Manager: Procedure Note Donotuseinterpreter, Image - 05/31/[address] [address] [address] Scan Report Signed Patient: Ashtyn Isaacs#: [id number] 6 : 1985Acct:[id number] Age/Sex: 40 / MADM Date: 05/29/25 Loc: HO.CT Attending Dr: Stefan Bahena MD Ordering Physician: Stefan Bahena MD Date of Service: 05/29/25 Procedure(s): CT head/brain wo IV con Accession Number(s): [id number] cc: Stefan Bahena MD Report Number: [id number]: Total DLP = 841.00 mGy-cm CLINICAL HISTORY: memory problems CT head without contrast Comparison: None Findings: No acute hemorrhage, acute major vascular distribution infarct, intracranial mass, midline shift or hydrocephalus. No extra-axial fluid collection. Empty sella. Visualized paranasal sinuses and mastoid air cells normal. Orbits unremarkable. The cranium appears intact. Superficial soft tissue is unremarkable. Impression: 1. No acute intracranial finding. 2. Incidental note of empty sella. This document has been electronically signed by: Shaista Rosario MD on 05/31/2025 12:48:11 Dictated By: Shaista Rosario MD Signed By: <Electronically signed by Shaista Rosario MD in OV> 05/31/25 1249 DD/ 1248 TD/TT: 05/31/251247 Food Beverage Manager: us Stefan Ray MD IMG CT PROCEDURES Fin al Result * Syphilis Screen (05/10/2025 10:41 AM EDT) Syphilis Screen Nonreactive Nonreactive [facility] Blood Venous blood specimen / Unknown 05/10/2025 10:41 AM EDT 05/10/2025 11:20 AM EDT Stefan Ray MD LAB BLOOD ORDERABLES Final Result [facility] [address] [place] [phone] * Vitamin B12/Folate, Serum Panel (05/10/2025 10:41 AM EDT) Vitamin B12 510 200 - 900 pg/mL [facility] Comment:NORMAL 200-900 PG/ML INDETERMINATE 160-199 PG/ML DEFICIENT < 160 PG/ML Folate 11.6 > or = 4.0 ng/mL [facility] Comment:Reference Values:> o r = 4.0 [...] BLOOD ORDERABLES Final Result Performing Organization Address City/[facility]/ZIP Co de Phone Number [facility] [address] [place] [address] [phone] * TSH with Reflex to Free T4 (05/10/2025 10:41 AM EDT) TSH reflex Free T4 1.32 0.32 - 4.0 uIU/mL [facility] Blood Venous blood specimen / Unknown 05/10/2025 10:41 AM EDT 05/10/2025 11:25 AM EDT us Stefan Ray MD LAB BLOOD ORDERABLES Final Result Performing Organization Address [facility] Co de Phone Number [facility] [address] [place] [phone] * Tissue Transglutaminase (tTG) Antibody (IgG) (05/10/2025 10:41 AM EDT) Tissue Transglutaminase Antibody IgG <1.0 U/mL [facility] Comment:Value Interpretation ----- <15.0 Antibody not detected> or = 15.0 Antibody detectedTHIS TEST WAS PERFORMED AT:[facility] [place] [phone] BENNETT MD 05/10/2025 10:4 1 AM EDT 05/10/2025 11:25 AM EDT Generic External Data Provider LAB BLOOD ORDERAB LES Final Result Performing Organization Address [facility] Co de Phone Number [facility] [address] [place] [phone] * CBC auto differential (05/10/2025 10:41 AM EDT) White Blood Count 9.7 4.8 - 10.8 X10*3/uL [facility] Red Blood Count 5.05 4.60 - 5.80 X10*6/uL [facility] Hemoglobin 15.9 14.0 - 18.0 g/dl [facility] Hematocrit 46.3 42.0 - 52.0 % [facility] Mean Corpuscular Volume 91.7 80.0 - 98.0 fL [facility] Mean Corpuscular Hemoglobin 31.5 27.0 - 33.0 pg [facility] Mean Corpuscular HGB Conc 34.3 31.0 - 36.0 g/dl [facility] Red Cell Distribution Width 12.3 11.0 - 16.0 % [facility] Platelet Count 353 160 - 400 X10*3/uL [facility] Mean Platelet Volume 9.4 9.4 - 12.4 fL [facility] Neutrophils Percent Auto 57.0 45 - 73 % [facility] Imm Gran Pct Auto 0.3 0.0 - 0.4 % [facility] Lymphocytes Percent Auto 34.4 20 - 40 % [facility] Monocytes Percent Auto 6.2 2 - 11 % [facility] Eosinophils Percent Auto 1.7 0 - 4 % [facility] Basophils Percent Auto 0.4 0 - 2 % [facility] NRBC Pct Auto 0.0 0.0 - 0.2 /100WBC [facility] Neutrophils Absolute Auto 5.5 2.0 - 8.3 x10*3/uL [facility] Imm Gran Abs Auto 0.03 0.00 - 0.03 X10*3/uL [facility] Lymphocytes Absolute Auto 3.4 1.2 - 4.9 X10*3/uL [facility] Monocytes Absolute Auto 0.6 0.1 - 1.2 X10*3/uL [facility] Eosinophils Absolute Auto 0.2 0.0 - 0.4 X10*3/uL [facility] Basophils Absolute Auto 0.0 0.0 - 0.2 X10*3/uL [facility] NRBC Abs Auto 0.000 0.0 - 0.012 X10*3/uL [facility] Blood Venous blood specimen / Unknown 05/10/2025 10:41 AM EDT 05/10/2025 11:20 AM EDT us Stefan Ray MD LAB BLOOD ORDERABLES Final Result [facility] [address] [place] [phone] * Lipase (05/10/2025 10:41 AM EDT) Lipase 32 8 - 78 U/L [facility] 05/10/2025 10:4 1 AM EDT 05/10/2025 11:25 AM EDT Generic External Data Provider LAB BLOOD ORDERAB LES Final Result Performing Organization Address [facility]/ZIP Co de Phone Number [facility] [address] [place] [address] [phone] * (ABNORMAL) Lipid Panel, Standard (05/10/2025 10:41 AM EDT) Triglycerides 139 <150 mg/dL [facility] Comment:Desirable Triglyceri de: less than 150 mg/dLBorderline High Triglyceride 150-199 mg/dLHigh Triglyceride: 200-499 mg/dLVery High Triglyceride: greater than or equal to 5OO mg/dL Cholesterol 255(H) <200 mg/dL [facility] Comment:Desirable Cholestero l: less than 200 mg/dLBorderline High Cholesterol: 200-239 mg/dLHigh Cholesterol: greater than 239 mg/dL LDL Cholesterol Calculated 181(H) <100 mg/dL [facility] Comment:Desirable LDL: less than 100 mg/dLNear Optimal/Above Optimal LDL: 110- 129 mg/dLBorderline High LDL: 130-159 mg/dLHigh LDL: 160-189 mg/dLVery High LDL: greater than or equal to 190 mg/dL HDL Cholesterol 47 >40 mg/dL [facility] Comment:Desirable HDL: great er than 40 mg/dL Note: This HDL assay may give artificially low results in patients with liver disease. Blood Venous blood specimen / Unknown 05/10/2025 10:41 AM EDT 05/10/2025 11:25 AM EDT us Stefan Ray MD LAB BLOOD ORDERABLES Final Result Performing Organization Address City/[facility]/ZIP Co de Phone Number [facility] [address] [place] [address] [phone] * (ABNORMAL) Comprehensive Metabolic Panel (05/10/2025 10:41 AM EDT) Sodium 140 135 - 145 mmol/L [facility] Potassium 4.5 3.3 - 5.1 mmol/L [facility] Chloride 105 96 - 108 mmol/L [facility] Carbon Dioxide 26 22 - 29 mmol/L [facility] Anion Gap 14 12 - 20 [facility] Urea Nitrogen (BUN) 14 9 - 16 mg/dL [facility] Creatinine, Serum 0.93 0.5 - 1.4 mg/dL [facility] Estimated Glomerular Filt Rate >60 [facility] Comment:Chronic Kidney Disea se: Estimated GFR < 60 mL/min/1.84t7Ufonkl Kidney Disease: Estimated GFR < 15 mL/min/1.73m2 Glucose 114 60 - 115 mg/dL [facility] Calcium 9.5 8.4 - 10.2 mg/dL [facility] Bilirubin, Total 0.5 0.0 - 1.0 mg/dL [facility] Aspartate Amino Transferase 47(H) 5 - 37 U/L [facility] Alanine Aminotransferase 75(H) 0 - 40 U/L [facility] Total Protein 7.7 6.5 - 8.0 g/dL [facility] Albumin Level 4.5 3.5 - 5.0 g/dL [facility] Alkaline Phosphatase 58 39 - 117 U/L [facility] Blood Venous blood specimen / Unknown 05/10/2025 10:41 AM EDT 05/10/2025 11:25 AM EDT us Stefan Ray MD LAB BLOOD ORDERABLES Final Result [facility] [address] [place] [phone] * Helicobacter pylori, Urea Breath Test (05/05/2025 2:30 PM EDT) H. pylori Breath Test Negative Negative [facility] Comment:Antimicrobials, prot on pump inhibitors and bismuthpreparations are known to suppress H. pylori. Ingestingthese medications within two weeks prior to performing thebreath test may produce negative test results. A positiveresult is still clinically valid. 05/05/2025 2:30 PM EDT 05/06/2025 4:55 PM EDT us Generic External Data Provider LAB BODY FLUIDS A ND STOOLS ORDERABLES Final Result [facility] [address] [place] [phone] * Cytopath-cell enhanced (03/23/2025 4:12 PM EDT) 03/23/2025 4:12 PM EDT 03/24/2025 10:20 AM EDT Narrative [facility] - 03/24/2025 3:04 PM EDT ----- ------- Name: Carmelo Isaacs Age/Sex: 40/M : 1985 Unit#: [id number] Attend Dr: Amalia Reyez [facility] Re03/23/25 Status: DEP REF Location: .LAB Disch: ----- ------- SPEC : [id number] RECD: 03/24/25-1020 STATUS: JANICE MANUEL NUM: [id number] TARIQ: 03/23/25-[address] [facility] [address]: Amalia Reyez [facility] ENTERED: 03/24/25-1050 SP TYPE: Cytology OTHR DR: Stefan Bahena MD ORDERED: Cyto-enhanced Diagnosis Urine: Negative for high-grade urothelial carcinoma. See comment. COMMENT: Scant cellularity. Few lymphocytes and rare squamous cells only. Clinical History Cystitis, unspecified without hematuria Material Received Urine Gross Description Received is 50 cc of cloudy yellow fluid from which a ThinPrep slide is prepared. Copies To: Stefan Bahena MD [facility] [address] [place], [place] [phone] [facility] [address] [place] [address] Thanh [address] [place], [place] [phone] [email or web address] ----- ------- Signed (signature on file) Juan Abernathy MD 03/24/25 1504 ----- ------- END OF REPORT us Generic External Data Provider LAB CYTOLOGY DANYA SABILLON Final Result [facility] [address] [place], [place] [phone] * Hepatitis A,B,C Profile (01/22/2025 12:30 PM EDT) Hepatitis A IgM Nonreactive Nonreactive [facility] Comment:IgM antibodies to GALLAGHER V not detected; does not exclude earlyacute or recovered HAV infection. ~Hepatitis B Surface Antibody NONREACTIVE Nonreactive [facility] Comment:Nonreactive: < 8.00 mIU/mL Hepatitis B Core Antibody Nonreactive Nonreactive [facility] Hepatitis C Antibody Nonreactive Nonreactive [facility] Comment:Antibodies to HCV no t detected; does not exclude early acuteHCV infection. Hepatitis B Surface Ag Negative Negative [facility] Blood Venous blood specimen / Unknown 01/22/2025 12:30 PM EDT 01/22/2025 1:13 PM EDT [facility] LAB BLOOD ORDERABLES Final Resul t [facility] [address] [place] [phone] * HIV-1/2 Antigen and Antibodies, Fourth Generation, with Reflexes (01/22/2025 12:30 PM EDT) Pathologist [facility] HIV AB/AG Nonreactive Nonreactive [facility] Comment:HIV-1 p24 Ag and/or HIV-1/HIV-2 Ab not detected.A test result that is nonreactive does not exclude thepossibility of exposure to or infection with HIV-1 and/orHIV-2. Nonreactive results in this assay for individualswith prior exposure to HIV-1 and/or HIV-2 may be due toantigen and antibody levels that are below the limit ofdetection of this assay.The [employer] HIV Ag/Ab Combo assay result andsupplemental assay results should be interpreted inconjunction with the patient's clinical presentation,history and other laboratory results. If the results areinconsistent with clinical evidence, additional testing issuggested to confirm the result. Blood Venous blood specimen / Unknown 01/22/2025 12:30 PM EDT 01/22/2025 1:13 PM EDT Wendy Tijerina ANP LAB BLOOD ORDERABLES Final Resul t Performing Organization Address [facility] Co de Phone Number [facility] [address] [place] [phone] * Hemoglobin A1c (01/22/2025 12:30 PM EDT) Hemoglobin A1c 5.8 <6.0 % [facility] Comment:Hemoglobin A1C Refer ence Range Adults: 4.8 - 6.0 % Non diabetic: < 6.0 % Goal: < 7.0 %Additional Action Suggested: > 8.0 %Note: Hemoglobin A1c results are invalid for patients with abnormal amounts of HbF. Blood transfusions may impact the HbA1c concentration in the patient sample. Estimated Average Glucose 120 mg/dL [facility] Comment:eAG = Estimated ave rage glucose which is %A1C expressed asaverage glucose, using the formula of the P2G-VohoaupTagobne Glucose study (ADAG), Diabetes Care, Vol.31,#8,Jun. 2007 Blood Venous blood specimen / Unknown 01/22/2025 12:30 PM EDT 01/22/2025 1:13 PM EDT Wendy Tijerina ANP LAB BLOOD ORDERABLES Final Resul t Performing Organization Address [facility] de Phone Number [facility] [address] [place] [phone] from Last 3 Months or Most Recently Relevant to Health Maintenance Insurance [facility] Care Teams Tuber Helper Relationship Specialty Start Date End Date Stefan Reece MD [address] [place] [phone] PCP - General Internal Medicine 02/09/21
--- OUTSIDE RECORDS SUMMARY | 2025-06-23 11:42 | XMS_ITS | Clinical Summary ---
Author Organization [facility] Address [address] [place] [phone] Phone Care Team Providers Care Sfdc Consultant Name Role Phone Physician, Pcp Unknown Primary [...] complete this topic Insurance MEDICAID - [place] [facility] MEDICARE ADVANTAGE Care Teams Sfdc Consultant Relationship Specialty Start Date End Date Physician, Pcp Unknown PCP - General 01/18/25
== END 2025-06-23 11:22 | disposition home or self-care (01) ==
LOC: HO.HUSH 10:27
PROVIDERS: PCP Internal Medicine; Visit Provider Nurse Practitioner Family
DX: R35.0 Frequency of micturition (principal); R35.1 Nocturia; R39.9 Unspecified symptoms and signs involving the genitourinary system; R39.14 Feeling of incomplete bladder emptying; N32.89 Other specified disorders of bladder; Z13.9 Encounter for screening, unspecified
CPT/HCPCS: 99213

== ENCOUNTER → 2025-06-23 10:27 | Outpatient (BNVA) | payer OTHER, SELFPAY | PROVIDERS: PCP Internal Medicine; Visit Provider Nurse Practitioner Family | DX: R35.0 Frequency of micturition (principal); R35.1 Nocturia; R39.9 Unspecified symptoms and signs involving the genitourinary system; R39.14 Feeling of incomplete bladder emptying; N32.89 Other specified disorders of bladder | CPT/HCPCS: 51798; 81003; 99212 ==

== ENCOUNTER 2025-08-30 09:22 | Outpatient (AMB) | payer OTHER, SELFPAY ==
--- NOTE | 2025-08-30 09:34 | MHC.OFFVIS ---
Intake Visit Reasons: cystoscopy Intake Note: Patient presents to office for a cystoscopy Urology Medication:TERAZOSIN Antibiotic Allergy:NONE Blood Thinner:NONE Lot#:[id number] Exp:04/12/28 Medical Information Specialist Required: Yes Medical Information Specialist Name: [id number]--Mnnhsbps Information Interpreted: non-clinical & clinical Allergies No Known Allergies Allergy (Verified 08/30/25 09:34) Medication List - Last Reconciled 08/30/25 by Cl Simpson MD bisacodyl (Dulcolax (bisacodyl)) 10 mg (2 x 5 mg) PO BEDTIME esomeprazole magnesium (Nexium) 40 mg PO DAILY hydroxyzine pamoate (Vistaril) 25 mg PO BEDTIME terazosin 5 mg PO BEDTIME 30 days HPI Comments Details: 08/30/25--Here for Office Cystoscopy The patient is a 40-year-old male presenting with bladder inflammation. He has been experiencing persistent urgency despite taking terazosin 5 mg for two months. The cystoscopy revealed no suspicious bladder lesions, but the bladder was mild to moderatedly inflamed. 25 minutes spent in review of records pertaining to this visit and including [id number] discussion with the patient and documentation of this visit. Results - Cystoscopy findings: mild to moderate bladder inflammation, no suspicious bladder lesions noted Plan Cystitis - Continue terazosin 5 mg at bedtime. - Initiate hydroxyzine 25 mg at bedtime to address urinary symptoms secondary to bladder inflammation. - Provide dietary guidance to avoid bladder irritants. - Schedule a follow-up in two months to assess symptom improvement. 06/23/25--Ricardo is a Macedonian-speaking 40-year-old male patient of Dr. Bahena. He has a past medical history of epigastric pain, pelvic pain, nocturia, urinary frequency, hemorrhoids, constipation, dysphagia, IBS, GERD, and abdominal pain. He presents to the office today for follow-up. Of note, patient was seen approximately 3 months ago as a new patient for ongoing lower urinary tract symptoms he has been experiencing at which time his Flomax was discontinued and he was started on terazosin as well as low-dose Cialis for bladder stability. In discussion with the patient today he reports no improvement in his lower urinary tract symptoms with these medications. He continues to experience bladder discomfort, urinary urgency, feeling of incomplete bladder emptying and nocturia. In office urinalysis results reviewed with the patient today. Negative leukocytes negative nitrates negative microscopic hematuria. We did discussed at length potential causes of lower urinary tract symptoms patient is experiencing as well as further treatment options and risks and benefits of these treatment options. He discusses having underwent a cystoscopy in the past when he was incarcerated and being told his bladder was inflamed. We did discuss trial of low-dose trimethoprim as well as other OAB medications versus alpha blockers. Previous workup has included a bladder ultrasound 02/26 noting pre void bladder volume is approximately 400 mL. Postvoid bladder volume is approximately 30 mL. The urinary bladder wall is mildly thickened measuring up to 6 mm in thickness. No masses identified. The prostate measures approximately 14 mL. PSA 01/26 0.3. BITA offered however deferred. We discussed bladder triggers and irritants. We discussed the importance of adequate hydration relation to lower urinary tract symptoms and pH of 6.0 on urinalysis today. He denies incontinence, hematuria, dysuria, foul smelling urine, changes to urinary stream, flank pain, fever, and or chills. He discusses his frustration regarding these lower urinary tract symptoms as they have been present for many years. He also discusses his reluctancy in taking medications He otherwise offers no other issues or concerns at this time. [facility] Medical History Epigastric pain Elevated blood pressure reading without diagnosis of hypertension Pelvic pain Nocturia Urinary frequency Hemorrhoids Heart burn Constipation Dysphagia IBS (irritable bowel syndrome) GERD (gastroesophageal reflux disease) H/O urinary frequency Hematochezia Abdominal pain Family History Father Esophageal cancer Review of Systems Const All systems reviewed & are unremarkable except as noted in HPI and below Reports no additional complaints Eyes Reports no additional complaints ENT Reports no additional complaints Card Reports no additional complaints Resp Reports no additional complaints GI Reports no additional complaints Reports as per HPI Musc Reports no additional complaints Skin/Breast Reports system reviewed and no additional complaints, except as documented Neuro Reports no additional complaints Psych Reports no additional complaints Endo Reports no additional complaints Guero/Lymph Reports no additional complaints Aller/Immun Reports no additional complaints Office Procedures Cystoscopy Consent Discussed risk and benefit or proposed procedure with the patient. Information consent for procedure given to the patient. Discussed technical aspects, risks, benefits and alternatives in full. Addressed all of the patient's questions and concerns regarding the procedure. The patient demonstrated knowledge and understanding. They wish to proceed with this procedure. Preparation The patient was prepped in the usual manner. A vascular ultrasound technician was present and in the room. Genitalia was prepped with betadine solution in a sterile manner. Lidocaine Jelly 2% was placed into the urethra and 16Fr flexible Olympus cystoscope was inserted into the meatus after adequate lubrication. Procedure Time out per protocol performed. The flexible cystoscope is passed transurethrally: The bladder was inspected in its entirety with utilization retroflexion displaying: Tumor(s): no suspicious bladder lesions visualized Trabeculation: NA Mucosal Erthema: mild to moderate Orifices: normal shape and position Urethra: normal Cystoscopy findings: prostatic urethra non obstructive bulbous urethra WNL, no suspicious bladder lesions visualized [id number] DISPOSABLE SCOPE URO-G FLEXIBLE SCOPE Procedure code (CPT) selection complete Office Meds lidocaine HCl 2 % mucosal jelly in applicator Performing Provider: Cl Simpson MD Performing Location: [facility] [place] [facility] Administered by: No Eaton RN on 08/30/25 10:00 Dose Route Admin Location Dispensed Lot Number Expiration Date NDC Manager Ship 10 mL intra-urethral 20 mL ciprofloxacin HCl 500 mg tablet Performing Provider: Cl Simpson MD Performing Location: [facility] [place] [facility] Administered by: No Eaton RN on 08/30/25 10:00 Dose Route Admin Location Dispensed Lot Number Expiration Date NDC Manager Ship 500 mg PO 1 tab phenazopyridine 200 mg tablet Performing Provider: Cl Simpson MD Performing Location: [facility] [place] [facility] Administered by: No Eaton RN on 08/30/25 10:00 Dose Route Admin Location Dispensed Lot Number Expiration Date NDC Manager Ship 200 mg PO 1 tab Results AMB Urinalysis, Automated UA Leukoctes 0 Lyla/uL Last Edit by Leilani Ramírez on 08/30/25 16:56 UA Nitrite Negative Last Edit by Leilani Ramírez on 08/30/25 16:56 UA Urobilinogen 0.2 mg/dL Last Edit by Leilani Ramírez on 08/30/25 16:56 UA Protein 0 mg/dL Last Edit by Crystal Ramírez on 08/30/25 16:56 UA pH 5.5 Last Edit by Crystal Ramírez on 08/30/25 16:56 UA Blood 0 Arron/uL Last Edit by Crystal Ramírez on 08/30/25 16:56 UA Specific [place] 1.025 Last Edit by Crystal Ramírez on 08/30/25 16:56 UA Ketone Negative Last Edit by Crystal Ramírez on 08/30/25 16:56 UA Bilirubin 0 mg/dL Last Edit by Crystal Ramírez on 08/30/25 16:56 UA Glucose 0 mg/dL Last Edit by Crystal Ramírez on 08/30/25 16:56 Results Reviewed Results Reviewed: Laboratory Last Values Urine pH (Auto) 5.5 08/30/25 11:04 Specific [place] (Auto) 1.025 08/30/25 11:04 Urine Protein (Auto) 0 mg/dL 08/30/25 11:04 Glucose (UA)(Auto) 0 mg/dL 08/30/25 11:04 Urine Ketones (Auto) Negative 08/30/25 11:04 Urine Blood (Auto) 0 Arron/uL 08/30/25 11:04 Urine Nitrite (Auto) Negative 08/30/25 11:04 Urine Bilirubin (Auto) 0 mg/dL 08/30/25 11:04 Urine Urobilinogen (Auto) 0.2 mg/dL 08/30/25 11:04 Leukocyte Esterase (Auto) 0 Lyla/uL 08/30/25 11:04 Date of Service: 02/12/25 Procedure(s): US bladder FINDINGS: Sonographic examination of the urinary bladder was performed before and after voiding. Before voiding, the urinary bladder measured 11.4 x 7.7 x 8.8, for an estimated volume of404 mL. After voiding, the urinary bladder measured 4.4 x 2.6 x 4.6, for an estimated volume of 28 mL. The urinary bladder wall is mildly thickened measuring up to 6 mm in thickness. No mass is identified. Bilateral ureteral jets are identified. The prostate measures 2.8 x 2.6 x 3.7 cm. IMPRESSION: Urinary bladder wall thickening which can be seen in the setting of cystitis. Post void bladder residual 28 mL. Assessment & Plan Assessment & Plan (1) Urinary frequency: Code(s): R35.0 - Frequency of micturition Category: Medical (2) Nocturia: Code(s): R35.1 - Nocturia Category: Medical (3) Lower urinary tract symptoms: Code(s): R39.9 - Unspecified symptoms and signs involving the genitourinary system Category: Medical (4) Cystitis: Code(s): N30.90 - Cystitis, unspecified without hematuria Category: Medical Plan Plan Cystitis - Continue terazosin 5 mg at bedtime. - Initiate hydroxyzine 25 mg at bedtime to address urinary symptoms secondary to bladder inflammation. - Provide dietary guidance to avoid bladder irritants. Orders: Orders AMB Urinalysis Automated 08/30/25 R10.13 - Epigastric pain AMB Cystoscopy 08/30/25 R35.0 - Frequency of micturition, R35.1 - Nocturia, R39.9 - Unspecified symptoms and signs involving the genitourinary system, R39.14 - Feeling of incomplete bladder emptying, N32.89 - Other specified disorders of bladder Medications: New hydroxyzine pamoate (Vistaril) 25 mg PO BEDTIME 30 caps 3RF Refilled terazosin 5 mg PO BEDTIME 30 caps 3RF 30 days N40.1 - Benign prostatic hyperplasia with lower urinary tract symptoms, R35.0 - Frequency of micturition Coding Level of Care Code Est Pt Level 4 (59454) Diagnoses Urinary frequency R35.0 Nocturia R35.1 Lower urinary tract symptoms R39.9 Cystitis N30.90 CPT Codes Cystoscopy - CPT: [id number] ([id number])
--- OUTSIDE RECORDS SUMMARY | 2025-08-30 10:24 | XMS_ITS | Clinical Summary ---
Author Organization [facility] Address [address] [place] [address] Phone Care Team Providers Care Train Attendant Name Role Phone Physician, Pcp Unknown Primary [...] Done Comments Hepatitis B Vaccines (1 of 3 - 19+ 3-dose series) 2002 HPV Vaccines (1 - 3-dose SCD M series) 2010 Depression Screening 11/04/2024 Cholesterol Screening (Lipid Panel) 01/18/2025 Hepatitis C Screening 01/18/2025 Medicare Annual Wellness Visit 01/18/2025 Social Influencers of Health Screening 01/18/2025 COVID-19 Vaccine (3 - 2024-2 6 season) 2025 03/24/2021, 03/03/2021 Influenza Vaccine (#1) 2025 DTaP,Tdap,and Td Vaccines (2 - Td or Tdap) 01/22/2035 01/22/2025 RSV Immunization Adult Patients (1 - 1-dose 75+ series) 2058 HIV Screening Completed 01/22/2025 HIB Vaccines Aged [...] complete this topic Insurance [place]ID - [place] [facility] [address] MEDICARE ADVANTAGE Care Teams Train Attendant Relationship Specialty Start Date End Date Physician, Pcp Unknown PCP - General 01/18/25
--- OUTSIDE RECORDS SUMMARY | 2025-08-30 10:24 | XMS_ITS | Clinical Summary ---
Author Organization [employer] Address [address] [place] [address] Care Team Providers Care Carton Maker Name Role Phone Stefan Reece MD Primary [...] abdominal pain after he was evaluated at [facility] ER. Workup there, included a CT abdomen, [...] Amylase was mildly elevated at 104. 01/18/2025 [facility] ED on CT there was some suggestion of fatty infiltration in the right hepatic lobe but otherwise was unremarkable. BG mildly was elevated 112 Normal CBC, lipase, UA (trace ketones), LFTs Pt was referred to GI for EGD appointment already scheduled for 05/2025 Former smoker 01/22/2025 Overview (01/22/2025): quit approx 2014 Encounters Date Type Department Care Team Description 07/01/2025 Telephone [facility] [address] [place] [phone] Stefan Reece MD Results 06/21/2025 Results Follow-Up [facility] [address] [place] [phone] Jodie Moreira NP [place] Upper GI w/air w/Barium Swallow 06/21/2025 Orders Only [facility] External Provider, [facility] from Last 3 Months Immunizations Immunization Administration [...] 3-dose series) 2002 COVID-19 Vaccine (3 - 2024-2 6 season) 2025 03/24/2021, 03/03/2021 Influenza Vaccine (#1) 2025 Diabetes: [...] 1 2:48 PM EDT Functional memory problem LIPID PANEL, STANDARD Routine 05/10/2025 10:41 AM EDT Epigastric pain HEPATITIS PANEL, GENERAL Routine 01/22/2025 12:30 PM [...] AM EDT Narrative 06/21/2025 9:07 AM EDT [place] [address] Fluoroscopy Report Signed Patient: Ricardo Isaacs MR#: [id number] 6 : 1985 Acct:[id number] Age/Sex: 40 / M ADM Date: 06/21/25 Loc: HO.XRAY Attending Dr: Haritha Souza [facility] Ordering Physician: Haritha Souza Date of Service: 06/21/25 Procedure(s): FL upper GI w air w Ba Swallow Accession Number(s): [id number] cc: Stefan Bahena MD; Haritha Souza [facility] EXAMINATION: XR UPPER GI SERIES WITH barium [...] Jeffrey Burdick MD 06/21/2025 09:04 AM EDT Dictated By: Jeffrey Burdick MD Signed By: <Electronically signed by Jeffrey Burdick MD in OV> 08/18/25 0904 DD/ 4 TD/TT: 06/21/25813 Laborer Car Barn: LIZABETH Procedure Note Donotuseinterpreter, Image - 06/21/[address] [address] Fluoroscopy Report Signed Patient: Ricardo IsaacsMR#: [id number] 6 : 1985Acct:[id number] Age/Sex: 40 / MADM Date: 06/21/25 Loc: HO.XRAY Attending Dr: Haritha Souza GLOVE OPERATOR- Ordering Physician: Haritha Souza GLOVE OPERATOR-MAJO Date of Service: 06/21/25 Procedure(s): FL upper GI w air w Ba Swallow Accession Number(s): [id number] cc: Stefan Bahena MD; Haritha Souza GLOVE OPERATOR- EXAMINATION: XR UPPER GI SERIES WITH barium [...] Jeffrey Burdick MD 06/21/2025 09:04 AM EDT Dictated By: Jeffrey Burdick MD Signed By: <Electronically signed by Jeffrey Burdick MD in OV> 06/21/25903 DD/ 4 TD/TT: 06/21/25813 Laborer Car Barn: [facility] us [facility] External Provider IMG FLU OROSCOPY PROCEDURES Final Result * CT Head w/o Contrast (05/31/2025 12:48 PM EDT) Anatomical Region Laterality Modality Head, Neck Computed Tomogra phy 05/31/2025 12:4 8 PM EDT Narrative 05/31/2025 12:49 PM EDT [address] [address] [address] Scan Report Signed Patient: Ricardo Isaacs MR#: [id number] 6 : 1985 Acct:[id number] Age/Sex: 40 / M ADM Date: 05/29/25 Loc: HO.CT Attending Dr: Stefan Bahena MD Ordering Physician: Stefan Bahena MD Date of Service: 05/29/25 Procedure(s): CT head/brain wo IV con Accession Number(s): [id number] cc: Stefan Bahena MD Report Number: [id number]: Total DLP = 841.00 mGy-cm CLINICAL HISTORY: [...] in OV> 05/31/25 1249 DD/ 1248 TD/TT: 05/31/25 1248 Laborer Car Barn: Procedure Note Donotuseinterpreter, Image - 05/31/[address] [address] [address] Scan Report Signed Patient: Ashtyn Isaacs#: [id number] 6 : 1985Acct:[id number] Age/Sex: 40 / MADM Date: 05/29/25 Loc: HO.CT Attending Dr: Stefan Bahena MD Ordering Physician: Stefan Bahena MD Date of Service: 05/29/25 Procedure(s): CT head/brain wo IV con Accession Number(s): [id number] cc: Stefan Bahena MD Report Number: [id number]: Total DLP = 841.00 mGy-cm CLINICAL HISTORY: [...] in OV> 05/31/25 1249 DD/ 1248 TD/TT: 05/31/25 1248 Laborer Car Barn: Stefan Ray MD IMG CT PROCEDURES Fin al Result * (ABNORMAL) Lipid Panel, Standard (05/10/2025 10:41 AM EDT) Triglycerides 139 <150 mg/dL [facility] Comment:Desirable Triglyceri de: less than 150 mg/dLBorderline High Triglyceride 150-199 mg/dLHigh Triglyceride: 200-499 mg/dLVery High Triglyceride: greater than or equal to 5OO mg/dL Cholesterol 255(H) <200 mg/dL [facility] Comment:Desirable Cholestero l: less than 200 mg/dLBorderline High Cholesterol: 200-239 mg/dLHigh Cholesterol: greater than 239 mg/dL LDL Cholesterol Calculated 181(H) <100 mg/dL [facility] Comment:Desirable LDL: less than 100 mg/dLNear Optimal/Above Optimal LDL: 110- 129 mg/dLBorderline High LDL: 130-159 mg/dLHigh LDL: 160-189 mg/dLVery High LDL: greater than or equal to 190 mg/dL HDL Cholesterol 47 >40 mg/dL [facility] Comment:Desirable HDL: grea ter than 40 mg/dL Note: This HDL assay may give artificially low results in patients with liver disease. Blood Venous blood specimen / Unknown 05/10/2025 10:41 AM EDT 05/10/2025 11:25 AM EDT Stefan Ray MD LAB BLOOD ORDERABLES Final Result Performing Organization Address [facility]/ZIP Co de Phone Number [facility] [address] [place] [phone] * Hepatitis A,B,C Profile (01/22/2025 12:30 PM EDT) Hepatitis A IgM Nonreactive Nonreactive [facility] Comment:IgM antibodies to GALLAGHER V not detected; does not exclude earlyacute or recovered HAV infection. ~Hepatitis B Surface Antibody NONREACTIVE Nonreactive [facility] Comment:Nonreactive: < 8.00 mIU/mL Hepatitis B Core Antibody Nonreactive Nonreactive [facility] Hepatitis C Antibody Nonreactive Nonreactive [facility] Comment:Antibodies to HCV no t detected; does not exclude early acuteHCV infection. Hepatitis B Surface Ag Negative Negative [facility] Blood Venous blood specimen / Unknown 01/22/2025 12:30 PM EDT 01/22/2025 1:13 PM EDT us Wendy FERRIS LAB BLOOD ORDERABLES Final Resul t Performing Organization Address [facility]/ZIP Co de Phone Number [facility] [address] [place] [phone] * HIV-1/2 Antigen and Antibodies, Fourth Generation, with Reflexes (01/22/2025 12:30 PM EDT) HIV AB/AG Nonreactive Nonreactive [facility] Comment:HIV-1 p24 Ag and/or HIV-1/HIV-2 Ab not detected.A test result that is nonreactive does not exclude thepossibility of exposure to or infection with HIV-1 and/orHIV-2. Nonreactive results in this assay for individualswith prior exposure to HIV-1 and/or HIV-2 may be due toantigen and antibody levels that are below the limit ofdetection of this assay.[employer] HIV Ag/Ab Combo assay result andsupplemental assay results should be interpreted inconjunction with the patient's clinical presentation,history and other laboratory results. If the results areinconsistent with clinical evidence, additional testing issuggested to confirm the result. Blood Venous blood specimen / Unknown 01/22/2025 12:30 PM EDT 01/22/2025 1:13 PM EDT [facility] LAB BLOOD ORDERABLES Final Resul t [facility] [address] [place] [phone] * Hemoglobin A1c (01/22/2025 12:30 PM EDT) Hemoglobin A1c 5.8 <6.0 % [facility] Comment:Hemoglobin A1C Refer ence Range Adults: 4.8 - 6.0 % Non diabetic: < 6.0 % Goal: < 7.0 %Additional Action Suggested: > 8.0 %Note: Hemoglobin A1c results are invalid for patients with abnormal amounts of HbF. Blood transfusions may impact the HbA1c concentration in the patient sample. Estimated Average Glucose 120 mg/dL [facility] Comment:eAG = Estimated ave rage glucose which is %A1C expressed asaverage glucose, using the formula of the N0C-LytgedbEurfmmk Glucose study (ADAG), Diabetes Care, Vol.31,#8,Jun. 2007 Blood Venous blood specimen / Unknown 01/22/2025 12:30 PM EDT 01/22/2025 1:13 PM EDT us Wendy Tijerina [facility] LAB BLOOD ORDERABLES Final Resul t [facility] [address] [place] [phone] from Last 3 Months or Most Recently Relevant to Health Maintenance Insurance [facility] Care Teams Carton Maker Relationship Specialty Start Date End Date Stefan Reece MD [address] [place] [phone] PCP - General Internal Medicine 02/09/21
== END 2025-08-30 10:45 | disposition home or self-care (01) ==
LOC: HO.HUSH 09:23
PROVIDERS: PCP Internal Medicine; Visit Provider Urology
DX: R35.0 Frequency of micturition (principal); R35.1 Nocturia; R39.9 Unspecified symptoms and signs involving the genitourinary system; R39.14 Feeling of incomplete bladder emptying; N32.89 Other specified disorders of bladder; R10.13 Epigastric pain
CPT/HCPCS: 52000

== ENCOUNTER → 2025-08-30 09:22 | Outpatient (BNVA) | payer OTHER, SELFPAY | PROVIDERS: PCP Internal Medicine; Visit Provider Urology | DX: R35.0 Frequency of micturition (principal); R35.1 Nocturia; R39.9 Unspecified symptoms and signs involving the genitourinary system; R39.14 Feeling of incomplete bladder emptying; N32.89 Other specified disorders of bladder; R10.13 Epigastric pain | CPT/HCPCS: 52000; 81003 ==